=== PATIENT | female | born 1995 | race Caucasian/White ===

== ENCOUNTER 2016-06-03 16:02 | Emergency (ER) | payer OTHER ==
[2016-06-03] MEDS ORDERED: ONDANSETRON 4 MG/2 ML VIAL IVP STA (17:22)
[2016-06-03] MEDS ORDERED: SODIUM CHLORIDE 0.9% 1,000 ML IV STA (17:22)
[2016-06-03 17:53] VITALS: RESP 16
--- NOTE | 2016-06-03 17:56 | ED ---
Headache HPI - General Chief Complaint: Headache Stated Complaint: Vomiting/Nausea/headache Time Seen by Provider: 06/03/16 17:12 Source: RN notes reviewed Mode of arrival: wheelchair Limitations: no limitations - History of Present Illness Initial Comments: 21 yo female presents to the ER with cc of chronic problems. Patient states she chronically has nausea and vomiting. Patient states she chronically has headaches chronically just feels weak is on her immune system is rundown. Patient states that she just thought she should be seen today. Patient states she's never seen a doctor for this. Patient states been having for years. Patient states that today she just thought she should be seen. Patient states that there is no real pain and changes chronically is nauseous. Patient is seen that she just got the flu a lot but she threw up a few times today so she was concerned. Patient states she has no belly pain. Patient states everything she is very vague and mild. Patient denies any recent fever, chills, shortness of breath, chest pain, back pain, abdominal pain, numbness or tingling , dysuria or hematuria, constipation or diarrhea, visual changes, or any other current symptoms. - Related Data Home Medications Medication Instructions Recorded Confirmed Divalproex Sodium [Depakote] 500 mg PO DAILY 06/03/16 06/03/16 Previous Rx's Medication Instructions Recorded Ondansetron Odt [Zofran ODT] 4 mg PO Q8HR PRN #20 tab 06/03/16 Allergies Allergy/AdvReac Type Severity Reaction Status Date / Time peanut Allergy Anaphylaxis Verified 06/03/16 16:31 sertraline [From Zoloft] Allergy Unknown Verified 06/03/16 16:31 tree nut Allergy Anaphylaxis Verified 06/03/16 16:31 Review of Systems ROS Statement: Those systems with pertinent positive or pertinent negative responses have been documented in the HPI. ROS Other: All systems not noted in ROS Statement are negative. Past Medical History Past Medical History: No Reported History Additional Past Medical History / Comment(s): costocondritis, ibs History of Any Multi-Drug Resistant Organisms: None Reported Past Surgical History: No Surgical Hx Reported Past Psychological History: No Psychological Hx Reported Smoking Status: Never smoker Past Alcohol Use History: Rare Past Drug Use History: None Reported General Exam - General Exam Comments Initial Comments: General: The patient is awake and alert, in no distress, and does not appear acutely ill. Eye: Pupils are equal, round and reactive to light, extra-ocular movements are intact; there is normal conjunctiva bilaterally. No signs of icterus. Ears, nose, mouth and throat: There are moist mucous membranes and no oral lesions. Neck: The neck is supple, there is no tenderness. Cardiovascular: There is a regular rate and rhythm. No murmur, rub or gallop is appreciated. Respiratory: Lungs are clear to auscultation, respirations are non-labored, breath sounds are equal. No wheezes, stridor, rales, or rhonchi. Gastrointestinal: Soft, non-distended, non-tender abdomen without masses or organomegaly noted. There is no rebound or guarding present. No CVA tenderness. Bowel sounds are unremarkable. Back: There is no tenderness to palpation in the midline. There is no obvious deformity. No rashes noted. Musculoskeletal: Normal ROM, no tenderness, There is no pedal edema. There is no calf tenderness or swelling. Sensation intact. Pulses equal bilaterally 2+. Neurological: CN II-XII intact, There are no obvious motor or sensory deficits. Coordination appears grossly intact. Speech is normal. Skin: Skin is warm and dry and no rashes or lesions are noted. Psychiatric: Cooperative, appropriate mood & affect, normal judgment. Limitations: no limitations Course Vital Signs 06/03/16 06/03/16 16:12 17:52 Temperature 97.8 F 98.0 F Pulse Rate 85 71 Respiratory 17 16 Rate Blood Pressure 119/70 102/53 O2 Sat by Pulse 100 100 Oximetry Medical Decision Making - Medical Decision Making 21-year-old female presents for chronic nausea and vomiting. This patient's lab work and x-ray reviewed and negative. Due to the nature of this pain and discomforts been lasting for months we did discuss follow-up with her family care doctor we also gave her follow-up with GI. We will start her on Zofran to help her with the nausea. Patient states that she understood she is in agreement plan and all questions have been answered. At this time she will be discharged home. - Lab Data Result diagrams: 06/03/16 17:48 06/03/16 17:48 Lab Results 06/03/16 06/03/16 06/03/16 Range/Units 17:48 17:48 17:48 WBC 4.9 (3.8-10.6) k/uL RBC 4.29 (3.80-5.40) m/uL Hgb 12.6 (11.4-16.0) gm/dL Hct 38.9 (34.0-46.0) % MCV 90.7 (80.0-100.0) fL MCH 29.3 (25.0-35.0) pg MCHC 32.3 (31.0-37.0) g/dL RDW 12.8 (11.5-15.5) % Plt Count 186 (150-450) k/uL Neutrophils % 48 % Lymphocytes % 43 % Monocytes % 6 % Eosinophils % 1 % Basophils % 0 % Neutrophils # 2.3 (1.3-7.7) k/uL Lymphocytes # 2.1 (1.0-4.8) k/uL Monocytes # 0.3 (0-1.0) k/uL Eosinophils # 0.1 (0-0.7) k/uL Basophils # 0.0 (0-0.2) k/uL Sodium 142 (137-145) mmol/L Potassium 4.1 (3.5-5.1) mmol/L Chloride 107 (98-107) mmol/L Carbon Dioxide 23 (22-30) mmol/L Anion Gap 12 mmol/L BUN 10 (7-17) mg/dL Creatinine 0.78 (0.52-1.04) mg/dL Est GFR (MDRD) Af Amer >60 (>60 ml/min/1.73 sqM) Est GFR (MDRD) Non-Af >60 (>60 ml/min/1.73 sqM) Glucose 87 (74-99) mg/dL Calcium 9.4 (8.4-10.2) mg/dL Total Bilirubin 0.8 (0.2-1.3) mg/dL AST 14 (14-36) U/L ALT 26 (9-52) U/L Alkaline Phosphatase 54 (38-126) U/L Total Protein 7.0 (6.3-8.2) g/dL Albumin 4.1 (3.5-5.0) g/dL Urine Color Urine Appearance (Clear) Urine pH (5.0-8.0) Ur Specific [place] (1.001-1.035) Urine Protein (Negative) Urine Glucose (UA) (Negative) Urine Ketones (Negative) Urine Blood (Negative) Urine Nitrate (Negative) Urine Bilirubin (Negative) Urine Urobilinogen (<2.0) mg/dL Ur Leukocyte Esterase (Negative) Urine RBC (0-5) /hpf Urine WBC (0-5) /hpf Ur Squamous Epith Cells (0-4) /hpf Urine Mucus (None) /hpf Urine HCG, Qual Not Detected (Not Detectd) 06/03/16 Range/Units 17:48 WBC (3.8-10.6) k/uL RBC (3.80-5.40) m/uL Hgb (11.4-16.0) gm/dL Hct (34.0-46.0) % MCV (80.0-100.0) fL MCH (25.0-35.0) pg MCHC (31.0-37.0) g/dL RDW (11.5-15.5) % Plt Count (150-450) k/uL Neutrophils % % Lymphocytes % % Monocytes % % Eosinophils % % Basophils % % Neutrophils # (1.3-7.7) k/uL Lymphocytes # (1.0-4.8) k/uL Monocytes # (0-1.0) k/uL Eosinophils # (0-0.7) k/uL Basophils # (0-0.2) k/uL Sodium (137-145) mmol/L Potassium (3.5-5.1) mmol/L Chloride (98-107) mmol/L Carbon Dioxide (22-30) mmol/L Anion Gap mmol/L BUN (7-17) mg/dL Creatinine (0.52-1.04) mg/dL Est GFR (MDRD) Af Amer (>60 ml/min/1.73 sqM) Est GFR (MDRD) Non-Af (>60 ml/min/1.73 sqM) Glucose (74-99) mg/dL Calcium (8.4-10.2) mg/dL Total Bilirubin (0.2-1.3) mg/dL AST (14-36) U/L ALT (9-52) U/L Alkaline Phosphatase (38-126) U/L Total Protein (6.3-8.2) g/dL Albumin (3.5-5.0) g/dL Urine Color Yellow Urine Appearance Cloudy H (Clear) Urine pH 7.0 (5.0-8.0) Ur Specific [place] 1.019 (1.001-1.035) Urine Protein Trace H (Negative) Urine Glucose (UA) Negative (Negative) Urine Ketones 2+ H (Negative) Urine Blood Negative (Negative) Urine Nitrate Negative (Negative) Urine Bilirubin Negative (Negative) Urine Urobilinogen 3.0 (<2.0) mg/dL Ur Leukocyte Esterase Negative (Negative) Urine RBC 2 (0-5) /hpf Urine WBC 2 (0-5) /hpf Ur Squamous Epith Cells 7 H (0-4) /hpf Urine Mucus Moderate H (None) /hpf Urine HCG, Qual (Not Detectd) - Radiology Data Radiology results: report reviewed, image reviewed Disposition Clinical Impression: Nausea & vomiting Disposition: HOME SELF-CARE Condition: Stable Instructions: Acute Nausea and Vomiting (ED) Additional Instructions: Please use medication as discussed. Please follow up with family doctor if symptoms have not improved over the next two days. Please return to the emergency room if your symptoms increase or worsen or for any other concerns. Prescriptions: Ondansetron Odt [Zofran ODT] 4 mg PO Q8HR PRN #20 tab PRN Reason: Nausea Referrals: Jacky Muniz DO [Primary Care Provider] - 1-2 days Eric Prather MD [STAFF PHYSICIAN] - 1-2 days Time of Disposition: 19:22
[2016-06-03 18:01] LABS: Basophils % (A) 0 %; CH 30.1; CHCM 33.3; Eosinophils # (A) 0.1 k/uL (0-0.7); Eosinophils % (A) 1 %; HCT 38.9 % (34.0-46.0); HDW 2.47; HGB 12.6 gm/dL (11.4-16.0); Luc # (Auto) 0.06; Luc % (Auto) 1; Lymphocytes # (A) 2.1 k/uL (1.0-4.8); Lymphocytes % (A) 43 %; MCH 29.3 pg (25.0-35.0); MCHC 32.3 g/dL (31.0-37.0); MCV 90.7 fL (80.0-100.0); Mean Platelet Volume 9.5; Monocytes # (A) 0.3 k/uL (0-1.0); Monocytes % (A) 6 %; Neutrophils # (A) 2.3 k/uL (1.3-7.7); Neutrophils % (A) 48 %; RBC 4.29 m/uL (3.80-5.40); RDW 12.8 % (11.5-15.5); WBC 4.9 k/uL (3.8-10.6); WBC (Perox) 4.75
[2016-06-03 18:17] LABS: ALT 26 U/L (9-52); AST 14 U/L (14-36); Alkaline Phosphatase 54 U/L (38-126); Anion Gap 12 mmol/L; Blood Urea Nitrogen 10 mg/dL (7-17); Calcium 9.4 mg/dL (8.4-10.2); Carbon Dioxide 23 mmol/L (22-30); Chloride 107 mmol/L (98-107); Glucose 87 mg/dL (74-99); Non-African American GFR(MDRD) >60 (>60 ml/min/1.73 sqM); Potassium 4.1 mmol/L (3.5-5.1); Sodium 142 mmol/L (137-145); Total Bilirubin 0.8 mg/dL (0.2-1.3)
[2016-06-03 18:18] LABS: Appearance,Urine Cloudy (Clear); Bilirubin,Urine Negative (Negative); Glucose,Urine (UA) Negative (Negative); Ketones,Urine 2+ (Negative); Leukocyte Esterase,Urine Negative (Negative); Mucus,Urine Moderate /hpf; Nitrite,Urine Negative (Negative); Particle Count 11856; Protein,Urine Trace (Negative); RBC,Urine 2 /hpf (0-5); Specific Gravity,Urine 1.019 (1.001-1.035); Squamous Epithelial Cell,Urine 7 /hpf (0-4); UA Billing (MACRO vs. MICRO) MICRO; WBC,Urine 2 /hpf (0-5)
--- NOTE | 2016-06-03 19:13 | XR ---
EXAMINATION TYPE: XR abdomen 2V DATE OF EXAM: 06/03/2016 6:38 PM COMPARISON: NONE HISTORY: Abdominal pain TECHNIQUE: 3 views FINDINGS: There is no sign of intestinal obstruction or pneumoperitoneum. Fecal pattern is normal. Th ere is no sign of a mass. Lung bases are clear. There are no pathologic calcifications or kidneys. IMPRESSION: Nonacute abdomen.
[2016-06-03 19:27] VITALS: BP 97/50; PULSE 72; TEMP 97.4
== END 2016-06-03 19:28 | disposition home or self-care (01) ==
LOC: EC 16:02
DX: R11.2 Nausea with vomiting, unspecified (principal); R51 Headache; R53.1 Weakness; K58.9 Irritable bowel syndrome, unspecified; Z79.899 Other long term (current) drug therapy; Z91.010 Allergy to peanuts; Z91.018 Allergy to other foods; Z88.8 Allergy status to other drugs, medicaments and biological substances
CPT/HCPCS: 99284; 96374; 96361 ×2; 36415; 80053; 85025; 81001; 81025; 74020; J2405

== ENCOUNTER 2016-07-10 18:08 | Emergency (ER) | payer OTHER ==
[2016-07-10 18:23] VITALS: RESP 16
[2016-07-10] MEDS ORDERED: SODIUM CHLORIDE 0.9% 1,000 ML IV ONE (18:38)
[2016-07-10] MEDS ORDERED: FAMOTIDINE 20 MG/2 ML VIAL IV STA (18:38)
[2016-07-10] MEDS ORDERED: ONDANSETRON 4 MG/2 ML VIAL IVP STA (18:38)
--- NOTE | 2016-07-10 18:49 | ED ---
General Adult HPI - General Chief complaint: Abdominal Pain Stated complaint: vomiting Time Seen by Provider: 07/10/16 18:13 Source: patient, family, RN notes reviewed, old records reviewed Mode of arrival: ambulatory Limitations: no limitations - History of Present Illness Initial comments: 21-year-old female presenting for nausea and vomiting. States his been a recurrent issue since March 2016. States that she is taking medication for her stomach. She denies any nausea medications. She states that today she began feeling nauseous again and has been throwing up throughout the day today. She denies any fevers or chills associated. She denies any significant abdominal pain associated. She is currently in the process of following up with GI for an EGD but has not had this done at this point. - Related Data Home Medications Medication Instructions Recorded Confirmed Divalproex Sodium [Depakote] 1,000 mg PO DAILY 06/03/16 07/10/16 Omeprazole 20 mg PO DAILY 07/10/16 07/10/16 Previous Rx's Medication Instructions Recorded Metoclopramide [Reglan] 10 mg PO Q8HR PRN #15 tab 07/10/16 Allergies Allergy/AdvReac Type Severity Reaction Status Date / Time peanut Allergy Anaphylaxis Verified 07/10/16 18:37 sertraline [From Zoloft] Allergy Unknown Verified 07/10/16 18:37 tree nut Allergy Anaphylaxis Verified 07/10/16 18:37 Review of Systems ROS Statement: Those systems with pertinent positive or pertinent negative responses have been documented in the HPI. ROS Other: All systems not noted in ROS Statement are negative. Past Medical History Past Medical History: No Reported History Additional Past Medical History / Comment(s): costocondritis, ibs History of Any Multi-Drug Resistant Organisms: None Reported Past Surgical History: No Surgical Hx Reported Past Psychological History: No Psychological Hx Reported Smoking Status: Never smoker Past Alcohol Use History: Rare Past Drug Use History: None Reported General Exam - General Exam Comments Initial Comments: General: Awake and Alert. No acute distress. Does not appear acutely ill. Obese. Eyes: KRISTY, EOM intact. No nystagmus. No scleral icterus. HENT: Atraumatic, normocephalic. Mucous membranes moist. Trachea midline. Neck: The neck is supple, there is no tenderness or JVD. Cardiovascular: Regular rate and rhythm. No murmur, rub, or gallop is appreciated. Distal pulses intact. Respiratory: Lungs are clear to auscultation bilaterally. No wheezes, rales, rhonchi. No respiratory distress. Gastrointestinal: Soft, Nontender. No rebound or guarding. Non-distended. No masses or organomegaly noted. No CVA tenderness. Musculoskeletal: No tenderness. Normal ROM. No gross deformity. No strength deficits. Neurological: A&Ox3. CN II-XII grossly intact, There are no obvious motor or sensory deficits. Coordination appears grossly intact. Speech is normal. Skin: Skin is warm and dry and no rashes or lesions are noted. Psychiatric: Cooperative, appropriate mood & affect, normal judgment. Limitations: no limitations Course Vital Signs 07/10/16 07/10/16 07/10/16 18:19 19:40 20:49 Temperature 98.2 F 97.4 F L 97.1 F L Pulse Rate 91 89 80 Respiratory 16 16 16 Rate Blood Pressure 119/65 110/55 110/57 O2 Sat by Pulse 100 100 97 Oximetry Medical Decision Making - Medical Decision Making 21-year-old female presented for nausea and vomiting. This has been a recurrent issue for her since March 2016. She denies any significant abdominal pain at this time. Abdominal exam with no significant tenderness or evidence of peritonitis. Patient given symptomatic treatment with IV fluids and Zofran. Reevaluated and still having nausea. IV Reglan was given. Patient states this significantly improved her symptoms. Basic lab work was performed grossly unremarkable. Discussed possible underlying gastritis as cause of these recurrent symptoms. Discussed close follow-up with GI. Rx provided for Reglan. Discussed possible side effects of Reglan and use Benadryl if needed. Patient appears stable for discharge at this time. Discussed concerning signs symptoms for immediate return to the ED. Patient and mother agreeable with plan and discharge home. - Lab Data Result diagrams: 07/10/16 18:50 07/10/16 18:50 Lab Results 07/10/16 07/10/16 07/10/16 Range/Units 18:50 18:50 18:50 WBC 6.6 (3.8-10.6) k/uL RBC 4.14 (3.80-5.40) m/uL Hgb 12.6 (11.4-16.0) gm/dL Hct 37.7 (34.0-46.0) % MCV 91.2 (80.0-100.0) fL MCH 30.5 (25.0-35.0) pg MCHC 33.4 (31.0-37.0) g/dL RDW 12.9 (11.5-15.5) % Plt Count 198 (150-450) k/uL Neutrophils % 51 % Lymphocytes % 40 % Monocytes % 6 % Eosinophils % 1 % Basophils % 1 % Neutrophils # 3.4 (1.3-7.7) k/uL Lymphocytes # 2.7 (1.0-4.8) k/uL Monocytes # 0.4 (0-1.0) k/uL Eosinophils # 0.1 (0-0.7) k/uL Basophils # 0.0 (0-0.2) k/uL Sodium 142 (137-145) mmol/L Potassium 4.2 (3.5-5.1) mmol/L Chloride 108 H (98-107) mmol/L Carbon Dioxide 24 (22-30) mmol/L Anion Gap 10 mmol/L BUN 7 (7-17) mg/dL Creatinine 0.83 (0.52-1.04) mg/dL Est GFR (MDRD) Af Amer >60 (>60 ml/min/1.73 sqM) Est GFR (MDRD) Non-Af >60 (>60 ml/min/1.73 sqM) Glucose 88 (74-99) mg/dL Calcium 9.4 (8.4-10.2) mg/dL Lipase 67 (23-300) U/L Urine Color Urine Appearance (Clear) Urine pH (5.0-8.0) Ur Specific [place] (1.001-1.035) Urine Protein (Negative) Urine Glucose (UA) (Negative) Urine Ketones (Negative) Urine Blood (Negative) Urine Nitrite (Negative) Urine Bilirubin (Negative) Urine Urobilinogen (<2.0) mg/dL Ur Leukocyte Esterase (Negative) Urine RBC (0-5) /hpf Urine WBC (0-5) /hpf Ur Squamous Epith Cells (0-4) /hpf Urine Bacteria (None) /hpf Urine Mucus (None) /hpf Urine HCG, Qual Not Detected (Not Detectd) 07/10/16 Range/Units 18:50 WBC (3.8-10.6) k/uL RBC (3.80-5.40) m/uL Hgb (11.4-16.0) gm/dL Hct (34.0-46.0) % MCV (80.0-100.0) fL MCH (25.0-35.0) pg MCHC (31.0-37.0) g/dL RDW (11.5-15.5) % Plt Count (150-450) k/uL Neutrophils % % Lymphocytes % % Monocytes % % Eosinophils % % Basophils % % Neutrophils # (1.3-7.7) k/uL Lymphocytes # (1.0-4.8) k/uL Monocytes # (0-1.0) k/uL Eosinophils # (0-0.7) k/uL Basophils # (0-0.2) k/uL Sodium (137-145) mmol/L Potassium (3.5-5.1) mmol/L Chloride (98-107) mmol/L Carbon Dioxide (22-30) mmol/L Anion Gap mmol/L BUN (7-17) mg/dL Creatinine (0.52-1.04) mg/dL Est GFR (MDRD) Af Amer (>60 ml/min/1.73 sqM) Est GFR (MDRD) Non-Af (>60 ml/min/1.73 sqM) Glucose (74-99) mg/dL Calcium (8.4-10.2) mg/dL Lipase (23-300) U/L Urine Color Yellow Urine Appearance Cloudy H (Clear) Urine pH 8.0 (5.0-8.0) Ur Specific [place] 1.010 (1.001-1.035) Urine Protein Negative (Negative) Urine Glucose (UA) Negative (Negative) Urine Ketones 1+ H (Negative) Urine Blood Negative (Negative) Urine Nitrite Negative (Negative) Urine Bilirubin Negative (Negative) Urine Urobilinogen <2.0 (<2.0) mg/dL Ur Leukocyte Esterase Negative (Negative) Urine RBC <1 (0-5) /hpf Urine WBC 1 (0-5) /hpf Ur Squamous Epith Cells 7 H (0-4) /hpf Urine Bacteria Few H (None) /hpf Urine Mucus Rare H (None) /hpf Urine HCG, Qual (Not Detectd) Disposition Clinical Impression: Nausea & vomiting, Nonspecific abdominal pain Disposition: HOME SELF-CARE Condition: Stable Instructions: Abdominal Pain (ED), Gastritis (ED), Acute Nausea and Vomiting ( ED) Additional Instructions: Please continue to take your omeprazole. You may take the Reglan as needed for nausea. If you noticed any jittery feeling or muscle spasms please take Benadryl as this is a potential side effect of Reglan. Prescriptions: Metoclopramide [Reglan] 10 mg PO Q8HR PRN #15 tab PRN Reason: Nausea Referrals: Jacky Muniz DO [Primary Care Provider] - 1-2 days Time of Disposition: 20:43
[2016-07-10 19:08] LABS: Basophils % (A) 1 %; CH 30.6; CHCM 33.7; Eosinophils # (A) 0.1 k/uL (0-0.7); Eosinophils % (A) 1 %; HCT 37.7 % (34.0-46.0); HDW 2.56; HGB 12.6 gm/dL (11.4-16.0); Luc # (Auto) 0.15; Luc % (Auto) 2; Lymphocytes # (A) 2.7 k/uL (1.0-4.8); Lymphocytes % (A) 40 %; MCH 30.5 pg (25.0-35.0); MCHC 33.4 g/dL (31.0-37.0); MCV 91.2 fL (80.0-100.0); Mean Platelet Volume 9.2; Monocytes # (A) 0.4 k/uL (0-1.0); Monocytes % (A) 6 %; Neutrophils # (A) 3.4 k/uL (1.3-7.7); Neutrophils % (A) 51 %; RBC 4.14 m/uL (3.80-5.40); RDW 12.9 % (11.5-15.5); WBC 6.6 k/uL (3.8-10.6); WBC (Perox) 6.81
[2016-07-10 19:13] LABS: Appearance,Urine Cloudy (Clear); Bacteria,Urine Few /hpf; Bilirubin,Urine Negative (Negative); Glucose,Urine (UA) Negative (Negative); Ketones,Urine 1+ (Negative); Leukocyte Esterase,Urine Negative (Negative); Mucus,Urine Rare /hpf; Nitrite,Urine Negative (Negative); Particle Count 4592; Protein,Urine Negative (Negative); RBC,Urine <1 /hpf (0-5); Squamous Epithelial Cell,Urine 7 /hpf (0-4); UA Billing (MACRO vs. MICRO) MICRO; Urobilinogen,Urine <2.0 mg/dL (<2.0); WBC,Urine 1 /hpf (0-5)
[2016-07-10 19:15] LABS: Anion Gap 10 mmol/L; Blood Urea Nitrogen 7 mg/dL (7-17); Calcium 9.4 mg/dL (8.4-10.2); Carbon Dioxide 24 mmol/L (22-30); Chloride 108 mmol/L (98-107); Glucose 88 mg/dL (74-99); Non-African American GFR(MDRD) >60 (>60 ml/min/1.73 sqM); Potassium 4.2 mmol/L (3.5-5.1); Sodium 142 mmol/L (137-145)
[2016-07-10] MEDS ORDERED: METOCLOPRAMIDE 5 MG/ML 2 ML VIAL IVP STA (19:41)
[2016-07-10 20:50] VITALS: BP 110/57; PULSE 80; TEMP 97.1
== END 2016-07-10 20:49 | disposition home or self-care (01) ==
LOC: EC 18:08
DX: K29.70 Gastritis, unspecified, without bleeding (principal); Z79.899 Other long term (current) drug therapy; Z91.010 Allergy to peanuts; Z91.018 Allergy to other foods; Z88.8 Allergy status to other drugs, medicaments and biological substances
CPT/HCPCS: 36415; 80048; 83690; 85025; 81001; 81025; 99284; 96374; 96375 ×2; 96361; J2765; J2405

== ENCOUNTER → 2016-07-15 | Outpatient (CLI) | payer OTHER ==
--- NOTE | 2016-07-15 11:20 | US ---
EXAMINATION TYPE: US gallbladder DATE OF EXAM: 07/15/2016 10:04 AM COMPARISON: NONE CLINICAL HISTORY: 21-year-old female R11.2 Nausea with Vomiting. Technique: Multiple sonographic images of the right upper quadrant are obtained. FINDINGS: Liver Length: 10.8 cm Gallbladder Wall: 0.2 cm CBD: 0.4 cm Right Kidney: 9.7 x 3.8 x 4.6 cm Pancreas: Only a small portion of the pancreatic body is seen. Remainder suboptimally visualized seco ndary to shadowing from bowel gas. Liver: Normal size with homogeneous echotexture. No focal lesion. Gallbladder: No abnormal gallbladder distention, wall thickening, pericholecystic fluid, or shadowin g calculi. Evidence for sonographic Turpin's sign: No CBD: wnl Right Kidney: No hydronephrosis. There is a small 1 cm mid pole cyst. Some internal low level echoes are present but felt to be artifactual. IMPRESSION: Suboptimal visualization of the pancreas. In addition, incidental 1 cm right renal midpole cyst. Othe rwise, unremarkable sonographic examination of the right upper quadrant.
== END | disposition home or self-care (01) ==
LOC: RADUSWWP 09:32
PROVIDERS: ATTEND Internal Medicine Gastroenterology
DX: R11.2 Nausea with vomiting, unspecified (principal)
CPT/HCPCS: 76705

== ENCOUNTER 2016-07-24 10:43 | Day surgery (SDC) | payer OTHER ==
[2016-07-23 10:08] VITALS: BMI 33.9
[~2016-07-24 10:43] MED LIST: LACTATED RINGERS 1,000 ML IV SCH
[2016-07-24 12:28] VITALS: TEMP 99.2
[2016-07-24] MEDS ORDERED: LIDOCAINE 1% 20 ML VIAL (10MG/ML) FOR IV START INTRADERMA ONE (12:38)
[2016-07-24] MEDS ORDERED: LIDOCAINE 1% INJ 10MG/ML (20 ML MDV) ONE (13:04)
[2016-07-24] MEDS ORDERED: PROPOFOL 10 MG/ML 20 ML VIAL IV ONE (13:04)
--- NOTE | 2016-07-24 13:12 | P.PCN ---
Date of Procedure: 07/24/16 Procedure(s) Performed: BRIEF HISTORY: Patient is a 19 to-year-old, pleasant, white female, scheduled for an upper endoscopy as a part of evaluation of chronic nausea vomiting for the last 3 months duration. She is been on Prilosec 20 mg daily with no significant change in her symptoms. She has these episodes 2-3 times each month and during these episodes she has a midsternal chest pain. She lost about 20 pounds since onset of the symptoms. She is hence scheduled for an upper endoscopy to evaluate further. PROCEDURE PERFORMED: Esophagogastroduodenoscopy with biopsy. PREOPERATIVE DIAGNOSIS: Chronic nausea, vomiting of 3 months duration. IV sedation per anesthesia. PROCEDURE: After informed consent was obtained, the patient was brought into the endoscopy unit. IV conscious sedation was administered by Anesthesia under continuous monitoring. Initially the Olympus GIF-140 video endoscope was inserted into the mouth. Esophagus intubated without any difficulty. It was gradually advanced into the stomach and duodenum and carefully examined. The bulb and the second part of the duodenum appeared normal. Biopsies were done from this area to rule out celiac disease. The scope at this time was withdrawn to the stomach, adequately insufflated with air, and upon careful examination, mucosa of the antrum, had mild gastritis and biopsies were done from this area. The body, cardia and the fundus appeared normal. The scope was then withdrawn into the esophagus. The GE junction was located at 39 cm from the incisors. The esophagus appeared normal. There were no erosions or ulcerations seen and the patient tolerated the procedure well. IMPRESSION: 1. Mild antral Gastritis. 2. No evidence of esophagitis, peptic ulcer disease or gastric outlet obstruction. RECOMMENDATIONS: The findings of this examination were discussed with the patient as well as a family. She was advised to continue with Prilosec 20 mg daily and follow with the biopsy results. She'll be seen in the office in 4-6 weeks.
[2016-07-24 13:54] VITALS: BP 105/73; PULSE 80; RESP 16
== END 2016-07-24 14:14 | disposition home or self-care (01) ==
LOC: ORWHC2ENDO 10:43
PROVIDERS: ATTEND Internal Medicine Gastroenterology
DX: R11.2 Nausea with vomiting, unspecified (principal); R07.9 Chest pain, unspecified; K29.80 Duodenitis without bleeding; K29.50 Unspecified chronic gastritis without bleeding; F31.9 Bipolar disorder, unspecified; K20.9 Esophagitis, unspecified; Z79.899 Other long term (current) drug therapy; Z88.8 Allergy status to other drugs, medicaments and biological substances
CPT/HCPCS: 81025; 88305; 88342; 43239; J2001; J2704

== ENCOUNTER → 2018-04-14 | Outpatient (CLI) | payer OTHER ==
--- NOTE | 2018-04-15 07:52 | CT ---
EXAMINATION TYPE: CT chest w con DATE OF EXAM: 04/14/2018 COMPARISON: Chest x-ray August 03, 2015 HISTORY: SOB, cough X [address] DLP: 446.3 mGycm. Automated Exposure Control for Dose Reduction was Utilized. TECHNIQUE: CT scan of the thorax is performed following with IV Contrast, patient injected with 100 mL of Isovue 300. FINDINGS: LUNGS: Mild Dependent atelectasis bilateral lower lobes is present. No suspicious consolidation or fo jannette groundglass opacity is seen. There is no pleural effusion or pneumothorax seen bilaterally. Th e tracheobronchial tree is patent. MEDIASTINUM: There are no greater than 1 cm hilar or mediastinal lymph nodes. No cardiomegaly or pe ricardial effusion is seen. There is 4 vessel origin from aortic arch which is normal variant. OTHER: No additional significant abnormality is seen. IMPRESSION: No suspicious acute pulmonary process.
== END | disposition home or self-care (01) ==
LOC: RADCTMAIN 16:59
PROVIDERS: ATTEND Family Medicine
DX: R06.02 Shortness of breath (principal); R05 Cough; Z91.010 Allergy to peanuts
CPT/HCPCS: 71260; Q9967

== ENCOUNTER → 2018-07-26 | Outpatient (CLI) | payer OTHER ==
--- NOTE | 2018-07-26 13:55 | XR ---
EXAMINATION TYPE: XR ribs bilat w pa chest xray DATE OF EXAM: 07/26/2018 CLINICAL HISTORY: Chest and left greater than right bilateral rib pain. Dry cough. TECHNIQUE: Single frontal view of the chest is obtained. A frontal and oblique images of the bilatera l ribs are acquired. COMPARISON: None FINDINGS: There is no focal air space opacity, pleural effusion, or pneumothorax seen. The cardiac silhouette size is within normal limits. The osseous structures are intact. Dedicated images of bilateral ribs show no acute displaced fracture bilaterally. Overlying soft tissu e is unremarkable. IMPRESSION: 1. No acute cardiopulmonary process. 2. No acute displaced rib fractures are seen bilaterally
== END | disposition home or self-care (01) ==
LOC: RADXRMAIN 13:26
PROVIDERS: ATTEND Internal Medicine
DX: R05 Cough (principal); R07.81 Pleurodynia; R07.9 Chest pain, unspecified
CPT/HCPCS: 71111

== ENCOUNTER 2018-10-27 21:00 | Emergency (ER) | payer OTHER ==
[2018-10-27] MEDS ORDERED: LIDOCAINE 1% INJ 10MG/ML (20 ML MDV) SQ ONE (21:34)
--- NOTE | 2018-10-27 21:53 | XR ---
EXAMINATION TYPE: XR foot limited LT DATE OF EXAM: 10/27/2018 COMPARISON: NONE HISTORY: Possible foreign body TECHNIQUE: 2 views. FINDINGS: There is 4 mm linear opacity projected over the mid shaft of the proximal phalanx of the little toe left foot consistent with glass foreign body. Joint spaces are normal. Metatarsals are intact. There is small plantar calcaneal spur. : IMPRESSION: Small foreign body over the little toe. This is probably on the plantar aspect.
[2018-10-27] MEDS ORDERED: DIPH,PERTUS(ACELL)TETVAC-LF 0.5 ML VIAL IM ONE (22:02)
--- NOTE | 2018-10-27 22:40 | ED ---
Lower Extremity Injury HPI - General Chief Complaint: Extremity Injury, Lower Stated Complaint: Glass in foot Time Seen by Provider: 10/27/18 21:22 Source: patient Mode of arrival: ambulatory Limitations: no limitations - History of Present Illness Initial Comments: S23 female with no PMH presenting for left foot foreign body. Patient states she was barefoot in her basement 3 days prior when she stepped in a piece of glass with left foot. Patient states she is unable to get it out. Patient denies any erythema fever or chills. She states it has not been able to be removed states is painful walking. Patient presented for removal. Patient denies fall or other traumas. Patient denies any other areas of glass. Remaining review of systems negative - Related Data Home Medications Medication Instructions Recorded Confirmed Albuterol Inhaler [Ventolin Hfa 1 - 2 puff INHALATION RT-Q6H PRN 10/27/18 10/27/18 Inhaler] Previous Rx's Medication Instructions Recorded Cephalexin [Keflex] 500 mg PO Q8HR 5 Days #15 cap 10/27/18 Allergies Allergy/AdvReac Type Severity Reaction Status Date / Time peanut Allergy Anaphylaxis Verified 10/27/18 21:30 sertraline [From Zoloft] Allergy HEARTBURN Verified 10/27/18 21:30 tree nut Allergy Anaphylaxis Verified 10/27/18 21:30 Review of Systems ROS Statement: Those systems with pertinent positive or pertinent negative responses have been documented in the HPI. ROS Other: All systems not noted in ROS Statement are negative. Past Medical History Past Medical History: No Reported History Additional Past Medical History / Comment(s): NAUSEA/VOMITING, costocondritis, ibs History of Any Multi-Drug Resistant Organisms: None Reported Past Surgical History: No Surgical Hx Reported Past Anesthesia/Blood Transfusion Reactions: No Reported Reaction Past Psychological History: Bipolar Smoking Status: Never smoker Past Alcohol Use History: None Reported Past Drug Use History: None Reported - Past Family History Mother Family Medical History: No Reported History General Exam - General Exam Comments Initial Comments: General: The patient is awake and alert, in no distress, and does not appear acutely ill. Eye: +3 mm pupils are equal, round and reactive to light, extra-ocular movements are intact. No nystagmus. There is normal conjunctiva bilaterally. No signs of icterus. Ears, nose, mouth and throat: There are moist mucous membranes and no oral lesions. Neck: The neck is supple, there is no tenderness or JVD. Cardiovascular: There is a regular rate and rhythm. No murmur, rub or gallop is appreciated. Respiratory: Lungs are clear to auscultation, respirations are non-labored, breath sounds are equal. No wheezes, stridor, rales, or rhonchi. Musculoskeletal: Normal ROM, no tenderness. Strength 5/5. Sensation intact. Radial pulses equal bilaterally 2+. Neurological: A&O x 3. CN II-XII intact, There are no obvious motor or sensory deficits. Coordination appears grossly intact. Speech is normal. Skin: Skin is warm and dry and no rashe. 1/4 cm puncture with glass in middle near base of 5th digit of left foot plantar surface. painful to palpation. no drainage. Psychiatric: Cooperative, appropriate mood & affect, normal judgment. Limitations: no limitations Course Vital Signs 10/27/18 10/27/18 21:11 22:48 Temperature 98.5 F 97.9 F Pulse Rate 86 76 Respiratory 16 18 Rate Blood Pressure 142/88 127/89 O2 Sat by Pulse 99 99 Oximetry Medical Decision Making - Medical Decision Making 23-year-old female presented for chief complaint of glass in foot. glass on xr and on exam. removed, cleansed extensively. bandage applied. tetanus updated. no surrounding signs of infection. Patient states it did not go through sole of shoe. Patient started on short course of abx given length of time FB in foot. Patient discharged appearing well. Return parameters discussed as well as importance of pcp f/u. Disposition Clinical Impression: Foreign body in foot, left Disposition: HOME SELF-CARE Condition: Good Instructions (If sedation given, give patient instructions): Soft Tissue Foreign Body (ED) Additional Instructions: Please use medication as discussed. Please follow-up with family doctor in the next 2 days. Please return to emergency room if the symptoms increase or worsen or for any other concerns. Prescriptions: Cephalexin [Keflex] 500 mg PO Q8HR 5 Days #15 cap Is patient prescribed a controlled substance at d/c from ED?: No Referrals: Jacky Muniz DO [Primary Care Provider] - 1-2 days Time of Disposition: 22:40
[2018-10-27 22:49] VITALS: BP 127/89; PULSE 76; RESP 18; TEMP 97.9
--- NOTE | 2018-10-28 05:38 | CDI ---
Documentation Clarification OP Dear Elsa CORADO, PAC Please do the addendum for foreign body removal procedure. Thank you, Nelly Pierson Autotransfusionist If you have any question, Please contact learning manager at [phone] [facility]
== END 2018-10-27 22:50 | disposition home or self-care (01) ==
LOC: EC 21:00
DX: S91.342A Puncture wound with foreign body, left foot, initial encounter (principal); Z23 Encounter for immunization; Z88.8 Allergy status to other drugs, medicaments and biological substances; Z91.010 Allergy to peanuts; Z91.018 Allergy to other foods; W45.8XXA Other foreign body or object entering through skin, initial encounter
CPT/HCPCS: 99283; 90471; 28190; 73620; 90715; J2001

== ENCOUNTER 2019-08-01 16:47 | Emergency (ER) | payer OTHER ==
[2019-08-01] MEDS ORDERED: ONDANSETRON 4 MG/2 ML VIAL IVP STA (17:20)
[2019-08-01] MEDS ORDERED: ACETAMINOPHEN TAB 500 MG TAB PO STA (17:20)
[2019-08-01] MEDS ORDERED: SODIUM CHLORIDE 0.9% 2,000 ML IV STA (17:20)
--- NOTE | 2019-08-01 17:24 | ED ---
General Adult HPI - General Chief complaint: Nausea/Vomiting/Diarrhea Stated complaint: nausea, vomiting Time Seen by Provider: 08/01/19 17:02 Source: patient, RN notes reviewed Mode of arrival: wheelchair Limitations: no limitations - History of Present Illness Initial comments: 24-year-old female with a past medical history of nausea vomiting, IBS presents to the emergency department for a chief complaint of nausea vomiting. Patient states she has been nauseous and vomiting for about a week. States she does not feel she is able to keep much fluids down. She has not had a fever for 4 days. She denies any abdominal pain whatsoever. Denies any back pain. Denies any dysuria. Patient denies any cough congestion sore throat. Denies any anthony virus exposures.Patient has no other complaints at this time including shortness of breath, chest pain, abdominal pain, headache, or visual changes. - Related Data Home Medications Medication Instructions Recorded Confirmed Albuterol Inhaler [Ventolin Hfa 1 puff INHALATION RT-Q4H PRN 08/01/19 08/01/19 Inhaler] Previous Rx's Medication Instructions Recorded Cephalexin [Keflex] 500 mg PO Q6HR 14 Days #56 cap 08/01/19 Ondansetron [Zofran ODT] 4 mg PO Q8HR PRN #15 tab 08/01/19 Allergies Allergy/AdvReac Type Severity Reaction Status Date / Time peanut Allergy Anaphylaxis Verified 08/01/19 17:35 sertraline [From Zoloft] Allergy HEARTBURN Verified 08/01/19 17:35 tree nut Allergy Anaphylaxis Verified 08/01/19 17:35 Review of Systems ROS Statement: Those systems with pertinent positive or pertinent negative responses have been documented in the HPI. ROS Other: All systems not noted in ROS Statement are negative. Past Medical History Past Medical History: No Reported History Additional Past Medical History / Comment(s): NAUSEA/VOMITING, costocondritis, ibs History of Any Multi-Drug Resistant Organisms: None Reported Past Surgical History: No Surgical Hx Reported Past Anesthesia/Blood Transfusion Reactions: No Reported Reaction Past Psychological History: Bipolar Smoking Status: Never smoker Past Alcohol Use History: None Reported Past Drug Use History: None Reported - Past Family History Mother Family Medical History: No Reported History General Exam Limitations: no limitations General appearance: alert, in no apparent distress Head exam: Present: atraumatic, normocephalic, normal inspection Eye exam: Present: normal appearance, PERRL, EOMI. Absent: scleral icterus, conjunctival injection, periorbital swelling ENT exam: Present: normal exam, mucous membranes moist Neck exam: Present: normal inspection, full ROM. Absent: tenderness, meningismus, lymphadenopathy Respiratory exam: Present: normal lung sounds bilaterally. Absent: respiratory distress, wheezes, rales, rhonchi, stridor Cardiovascular Exam: Present: regular rate, normal rhythm, normal heart sounds. Absent: systolic murmur, diastolic murmur, rubs, gallop, clicks GI/Abdominal exam: Present: soft, normal bowel sounds. Absent: distended, tenderness (No abdominal tenderness whatsoever), guarding, rebound, rigid Back exam: Absent: CVA tenderness (R), CVA tenderness (L) Neurological exam: Present: alert Course Vital Signs 08/01/19 08/01/19 08/01/19 16:52 18:34 19:06 Temperature 100.3 F H 98.4 F Pulse Rate 115 H 94 Respiratory 20 18 Rate Blood Pressure 110/70 117/66 O2 Sat by Pulse 96 97 Oximetry Medical Decision Making - Medical Decision Making Patient initially febrile with mild reflexive tachycardia. Otherwise normal vitals. CBC has minimal leukopenia. CMP unremarkable. Urinalysis does show evidence of urinary tract infection. She does not have any abdominal tenderness or CVA tenderness. Patient is also on her period which is likely contributing to red blood cells. HCG is negative. Patient was given 2 L of fluids and 2 g or Rocephin. Patient will be treated with Keflex outpatient. She is tolerating oral intake. However we did recommend she return if she has any worsening symp toms which she is agreeable to. - Lab Data Result diagrams: 08/01/19 17:43 08/01/19 17:43 Lab Results 08/01/19 08/01/19 08/01/19 Range/Units 17:43 17:43 17:43 WBC 3.3 L (3.8-10.6) k/uL RBC 4.72 (3.80-5.40) m/uL Hgb 13.6 (11.4-16.0) gm/dL Hct 40.5 (34.0-46.0) % MCV 85.8 (80.0-100.0) fL MCH 28.8 (25.0-35.0) pg MCHC 33.5 (31.0-37.0) g/dL RDW 13.0 (11.5-15.5) % Plt Count 136 L (150-450) k/uL Neutrophils % 60 % Lymphocytes % 33 % Monocytes % 3 % Eosinophils % 1 % Basophils % 1 % Neutrophils # 2.0 (1.3-7.7) k/uL Lymphocytes # 1.1 (1.0-4.8) k/uL Monocytes # 0.1 (0-1.0) k/uL Eosinophils # 0.0 (0-0.7) k/uL Basophils # 0.0 (0-0.2) k/uL Sodium (137-145) mmol/L Potassium (3.5-5.1) mmol/L Chloride (98-107) mmol/L Carbon Dioxide (22-30) mmol/L Anion Gap mmol/L BUN (7-17) mg/dL Creatinine (0.52-1.04) mg/dL Est GFR (CKD-EPI)AfAm (>60 ml/min/1.73 sqM) Est GFR (CKD-EPI)NonAf (>60 ml/min/1.73 sqM) Glucose (74-99) mg/dL Calcium (8.4-10.2) mg/dL Total Bilirubin (0.2-1.3) mg/dL AST (14-36) U/L ALT (4-34) U/L Alkaline Phosphatase (38-126) U/L Total Protein (6.3-8.2) g/dL Albumin (3.5-5.0) g/dL Urine Color Red Urine Appearance Cloudy H (Clear) Urine pH 6.0 (5.0-8.0) Ur Specific [place] 1.025 (1.001-1.035) Urine Protein 2+ H (Negative) Urine Glucose (UA) Negative (Negative) Urine Ketones 1+ H (Negative) Urine Blood Large H (Negative) Urine Nitrite Negative (Negative) Urine Bilirubin Negative (Negative) Urine Urobilinogen 2.0 (<2.0) mg/dL Ur Leukocyte Esterase Moderate H (Negative) Urine RBC >182 H (0-5) /hpf Urine WBC >182 H (0-5) /hpf Ur Squamous Epith Cells 9 H (0-4) /hpf Urine Mucus Many H (None) /hpf Urine HCG, Qual Not Detected (Not Detectd) 08/01/19 Range/Units 17:43 WBC (3.8-10.6) k/uL RBC (3.80-5.40) m/uL Hgb (11.4-16.0) gm/dL Hct (34.0-46.0) % MCV (80.0-100.0) fL MCH (25.0-35.0) pg MCHC (31.0-37.0) g/dL RDW (11.5-15.5) % Plt Count (150-450) k/uL Neutrophils % % Lymphocytes % % Monocytes % % Eosinophils % % Basophils % % Neutrophils # (1.3-7.7) k/uL Lymphocytes # (1.0-4.8) k/uL Monocytes # (0-1.0) k/uL Eosinophils # (0-0.7) k/uL Basophils # (0-0.2) k/uL Sodium 137 (137-145) mmol/L Potassium 3.9 (3.5-5.1) mmol/L Chloride 103 (98-107) mmol/L Carbon Dioxide 24 (22-30) mmol/L Anion Gap 10 mmol/L BUN 15 (7-17) mg/dL Creatinine 1.01 (0.52-1.04) mg/dL Est GFR (CKD-EPI)AfAm 90 (>60 ml/min/1.73 sqM) Est GFR (CKD-EPI)NonAf 78 (>60 ml/min/1.73 sqM) Glucose 102 H (74-99) mg/dL Calcium 8.8 (8.4-10.2) mg/dL Total Bilirubin 0.4 (0.2-1.3) mg/dL AST 25 (14-36) U/L ALT 11 (4-34) U/L Alkaline Phosphatase 45 (38-126) U/L Total Protein 7.5 (6.3-8.2) g/dL Albumin 4.4 (3.5-5.0) g/dL Urine Color Urine Appearance (Clear) Urine pH (5.0-8.0) Ur Specific [place] (1.001-1.035) Urine Protein (Negative) Urine Glucose (UA) (Negative) Urine Ketones (Negative) Urine Blood (Negative) Urine Nitrite (Negative) Urine Bilirubin (Negative) Urine Urobilinogen (<2.0) mg/dL Ur Leukocyte Esterase (Negative) Urine RBC (0-5) /hpf Urine WBC (0-5) /hpf Ur Squamous Epith Cells (0-4) /hpf Urine Mucus (None) /hpf Urine HCG, Qual (Not Detectd) Disposition Clinical Impression: Urinary tract infection Disposition: HOME SELF-CARE Condition: Good Instructions (If sedation given, give patient instructions): Urinary Tract Infection in Women (ED), Acute Nausea and Vomiting (ED) Additional Instructions: Please drink plenty of fluids. Take Zofran as needed for nausea. Take Keflex for antibiotic coverage. Return to the emergency department if you have any worsening symptoms or symptoms are not improving in the next 24-48 hours. Prescriptions: Cephalexin [Keflex] 500 mg PO Q6HR 14 Days #56 cap Ondansetron [Zofran ODT] 4 mg PO Q8HR PRN #15 tab PRN Reason: Nausea Is patient prescribed a controlled substance at d/c from ED?: No Referrals: Jacky Muniz DO [Primary Care Provider] - 1-2 days Time of Disposition: 19:30
[2019-08-01 17:55] LABS: Basophils % (A) 1 %; Eosinophils % (A) 1 %; HCT 40.5 % (34.0-46.0); HGB 13.6 gm/dL (11.4-16.0); Lymphocytes # (A) 1.1 k/uL (1.0-4.8); Lymphocytes % (A) 33 %; MCH 28.8 pg (25.0-35.0); MCHC 33.5 g/dL (31.0-37.0); MCV 85.8 fL (80.0-100.0); Mean Platelet Volume 10.1; Monocytes # (A) 0.1 k/uL (0-1.0); Monocytes % (A) 3 %; Neutrophils % (A) 60 %; Platelet Count 136 k/uL (150-450); RBC 4.72 m/uL (3.80-5.40); WBC 3.3 k/uL (3.8-10.6)
[2019-08-01 17:58] LABS: Appearance,Urine Cloudy (Clear); Bilirubin,Urine Negative (Negative); Blood,Urine Large (Negative); Color,Urine Red; Glucose,Urine (UA) Negative (Negative); Ketones,Urine 1+ (Negative); Leukocyte Esterase,Urine Moderate (Negative); Mucus,Urine Many /hpf; Nitrite,Urine Negative (Negative); Protein,Urine 2+ (Negative); RBC,Urine >182 /hpf (0-5); Specific Gravity,Urine 1.025 (1.001-1.035); Squamous Epithelial Cell,Urine 9 /hpf (0-4); WBC,Urine >182 /hpf (0-5)
[2019-08-01 18:04] LABS: Albumin 4.4 g/dL (3.5-5.0); Calcium 8.8 mg/dL (8.4-10.2); Potassium 3.9 mmol/L (3.5-5.1); Total Bilirubin 0.4 mg/dL (0.2-1.3); Total Protein 7.5 g/dL (6.3-8.2)
[2019-08-01] MEDS ORDERED: cefTRIAXone IN SWFI 1,000 MG/10 ML SYRINGE IVP STA (18:11)
[2019-08-01] MEDS ORDERED: METOCLOPRAMIDE 5 MG/ML 2 ML VIAL IVP STA (18:53)
[2019-08-01 20:10] VITALS: PULSE 95; RESP 16; TEMP 98
[2019-08-01 20:11] VITALS: BP 96/53
== END 2019-08-01 20:15 | disposition home or self-care (01) ==
LOC: EC 16:47
DX: N39.0 Urinary tract infection, site not specified (principal); R00.0 Tachycardia, unspecified; D72.819 Decreased white blood cell count, unspecified; R11.2 Nausea with vomiting, unspecified; Z88.8 Allergy status to other drugs, medicaments and biological substances; Z91.010 Allergy to peanuts; Z91.018 Allergy to other foods; Z87.19 Personal history of other diseases of the digestive system
CPT/HCPCS: 36415; 80053; 85025; 81001; 81025; 87040; 87086; 99284; 96365; 96366; 96375 ×2; 96361; J2765; J2405; J0696

== ENCOUNTER 2019-08-02 22:27 | Inpatient (IN) | payer OTHER ==
[2019-08-02] MEDS ORDERED: ONDANSETRON 4 MG/2 ML VIAL IVP STA (22:49)
[2019-08-02] MEDS ORDERED: ACETAMINOPHEN TAB 500 MG TAB PO STA (22:49)
[2019-08-02] MEDS ORDERED: SODIUM CHLORIDE 0.9% 1,000 ML IV STA (22:49)
--- NOTE | 2019-08-02 22:57 | ED ---
Nausea/Vomiting/Diarrhea HPI - General Source: patient Mode of arrival: ambulatory Limitations: no limitations <Yolie Del Cid - Last Filed: 08/03/19 02:01> <Guy Blanco - Last Filed: 08/10/19 07:06> - General Chief complaint: Nausea/Vomiting/Diarrhea Stated complaint: Revisit Fever, NVD Time Seen by Provider: 08/02/19 22:37 - History of Present Illness Initial comments: Patient is a 24-year-old female presenting to the emergency Department with complaints of a fever, nausea, vomiting 5 days now. Patient was seen in the ER yesterday and was diagnosed with a UTI. She was sent home with antibiotics ho wever patient has not been able to take these antibiotics secondary to the vomiting. Patient continues to have a fever. Patient states today she started developing a cough and mild shortness of breath. Patient does admit to history of mild asthma and uses an albuterol inhaler at home as needed. Patient admits to some mild generalized abdominal discomfort, no sharp severe pains. She denies any previous abdominal surgeries. She denies any other pertinent past medical history. Patient states she has not been able to Tylenol or Motrin at home for fever secondary to the vomiting. Patient denies headache, sore throat, chest pain, diarrhea. Patient states she has not been able to eat or drink very much the last 4-5 days. There are no other complaints at this time. Upon arrival to the ER, patient is febrile to 103.1, pulse is 117, respiratory rate 20, blood pressure is 96/61, 97% on room air. (Yolie Del Cid) - Related Data Home Medications Medication Instructions Recorded Confirmed Albuterol Inhaler [Ventolin Hfa 1 puff INHALATION RT-Q4H PRN 08/01/19 08/03/19 Inhaler] Previous Rx's Medication Instructions Recorded Cephalexin [Keflex] 500 mg PO Q6HR 14 Days #56 cap 08/01/19 Ondansetron [Zofran ODT] 4 mg PO Q8HR PRN #15 tab 08/01/19 Allergies Allergy/AdvReac Type Severity Reaction Status Date / Time peanut Allergy Anaphylaxis Verified 08/03/19 07:33 tree nut Allergy Anaphylaxis Verified 08/03/19 07:33 sertraline [From Zoloft] AdvReac HEARTBURN Verified 08/03/19 07:33 Review of Systems ROS Other: All systems not noted in ROS Statement are negative. <Yolie Del Cid - Last Filed: 08/03/19 02:01> ROS Other: All systems not noted in ROS Statement are negative. <Guy Blanco - Last Filed: 08/10/19 07:06> ROS Statement: Those systems with pertinent positive or pertinent negative responses have been documented in the HPI. Past Medical History Past Medical History: No Reported History Additional Past Medical History / Comment(s): NAUSEA/VOMITING, costocondritis, ibs History of Any Multi-Drug Resistant Organisms: None Reported Past Surgical History: No Surgical Hx Reported Past Anesthesia/Blood Transfusion Reactions: No Reported Reaction Past Psychological History: Bipolar Smoking Status: Never smoker Past Alcohol Use History: None Reported Past Drug Use History: None Reported - Past Family History Mother Family Medical History: No Reported History <Yolie Del Cid - Last Filed: 08/03/19 02:01> General Exam Limitations: no limitations <Yolie Del Cid - Last Filed: 08/03/19 02:01> - General Exam Comments Initial Comments: GENERAL: Patient appears fatigued, actively dry heaving, in mild distress secondary to vomiting. HEAD: Atraumatic, normocephalic. EYES: Pupils equal round and reactive to light, extraocular movements intact, sclera anicteric, conjunctiva are normal. ENT: TMs normal, nares patent, oropharynx clear without exudates. Dry mucous membranes. NECK: Normal range of motion, supple without lymphadenopathy or JVD. LUNGS: Breath sounds clear to auscultation bilaterally and equal. No wheezes rales or rhonchi. HEART: Tachycardia rate and rhythm without murmurs, rubs or gallops. ABDOMEN: Generalized abdominal discomfort, increased over epigastric and upper abdomen. Soft, normoactive bowel sounds. No guarding, no rebound. No masses appreciated. : Deferred EXTREMITIES: Normal range of motion, no pitting or edema. No clubbing or cyanosis. NEUROLOGICAL: Normal speech, normal gait. PSYCH: Normal mood, normal affect. SKIN: Warm, Dry, normal turgor, no rashes or lesions noted. (Yolie Del Cid) Course Vital Signs 08/02/19 08/03/19 08/03/19 22:30 00:38 01:43 Temperature 103.1 F H 101.8 F H Pulse Rate 117 H 96 Respiratory 20 17 Rate Blood Pressure 96/61 103/62 O2 Sat by Pulse 97 94 L 90 L Oximetry 08/03/19 08/03/19 01:54 02:30 Temperature 98.9 F Pulse Rate 89 Respiratory 18 Rate Blood Pressure 117/73 O2 Sat by Pulse 93 L Oximetry Medical Decision Making - Lab Data Result diagrams: 08/02/19 22:53 08/02/19 22:53 <Yolie Del Cid - Last Filed: 08/03/19 02:01> - Lab Data Result diagrams: 08/02/19 22:53 08/02/19 22:53 <Guy Blanco - Last Filed: 08/10/19 07:06> - Medical Decision Making Patient is a 24-year-old female presenting with fever, nausea, vomiting 5 days. Today she developed cough, shortness of breath. She has a history of asthma. Patient arrived febrile, tachycardia. On exam patient seemed to have diminished breath sounds in the lower lung [place] bilaterally. She is actively dry heaving. Lab work reveals normal white count, elevated d-dimer at 0.96, lactic acid is normal at 1.0, CRP is elevated at 36.7. Influenza is negative. Covid 19 testing is pending at this time. Chest x-ray reveals mild increasing infrahilar lung markings bilaterally. Chest CTA was ordered secondary to elevated d-dimer, there is no evidence for acute PE. Patchy bilateral mid to lower lung field infiltrates. Patient was given fluids, Tylenol, Zofran. On reexamination patient continues to have a fever and oxygen saturation is anywhere from 88-92% on room air. Given patient's history and clinical symptom s, there is a strong suspicion for Covid 19. Patient will be admitted and be placed on oxygen. She was given azithromycin. Patient was accepted by Dr. Garza. Consulted pulmonology. EKG was obtained just prior to patient being transferred to the floor and shows prolonged QT. (Yolie Del Cid) I saw this patient in conjunction with the physician assistant media planner. I performed independent history and physical exam. Agree with case management. (Guy Blanco) - Lab Data Lab Results 08/02/19 08/02/19 08/02/19 Range/Units 22:53 22:53 22:53 WBC 4.1 (3.8-10.6) k/uL RBC 4.37 (3.80-5.40) m/uL Hgb 12.9 (11.4-16.0) gm/dL Hct 37.5 (34.0-46.0) % MCV 85.8 (80.0-100.0) fL MCH 29.4 (25.0-35.0) pg MCHC 34.3 (31.0-37.0) g/dL RDW 13.0 (11.5-15.5) % Plt Count 146 L (150-450) k/uL Neutrophils % 72 % Lymphocytes % 24 % Monocytes % 2 % Eosinophils % 1 % Basophils % 0 % Neutrophils # 2.9 (1.3-7.7) k/uL Lymphocytes # 1.0 (1.0-4.8) k/uL Monocytes # 0.1 (0-1.0) k/uL Eosinophils # 0.0 (0-0.7) k/uL Basophils # 0.0 (0-0.2) k/uL PT (9.0-12.0) sec INR (<1.2) APTT (22.0-30.0) sec D-Dimer 0.96 H (<0.60) mg/L FEU Sodium 137 (137-145) mmol/L Potassium 4.4 (3.5-5.1) mmol/L Chloride 105 (98-107) mmol/L Carbon Dioxide 24 (22-30) mmol/L Anion Gap 8 mmol/L BUN 14 (7-17) mg/dL Creatinine 0.96 (0.52-1.04) mg/dL Est GFR (CKD-EPI)AfAm >90 (>60 ml/min/1.73 sqM) Est GFR (CKD-EPI)NonAf 83 (>60 ml/min/1.73 sqM) Glucose 109 H (74-99) mg/dL Plasma Lactic Acid Rohit (0.7-2.0) mmol/L Calcium 8.4 (8.4-10.2) mg/dL Magnesium (1.6-2.3) mg/dL Ferritin 41.0 (10.0-291.0) ng/mL Total Bilirubin 0.4 (0.2-1.3) mg/dL AST 24 (14-36) U/L ALT 11 (4-34) U/L Alkaline Phosphatase 42 (38-126) U/L Lactate Dehydrogenase (313-618) U/L C-Reactive Protein 36.7 H (<10.0) mg/L Total Protein 6.6 (6.3-8.2) g/dL Albumin 3.8 (3.5-5.0) g/dL Procalcitonin (0.02-0.09) ng/mL Urine Color Urine Appearance (Clear) Urine pH (5.0-8.0) Ur Specific [place] (1.001-1.035) Urine Protein (Negative) Urine Glucose (UA) (Negative) Urine Ketones (Negative) Urine Blood (Negative) Urine Nitrite (Negative) Urine Bilirubin (Negative) Urine Urobilinogen (<2.0) mg/dL Ur Leukocyte Esterase (Negative) Urine RBC (0-5) /hpf Urine WBC (0-5) /hpf Ur Squamous Epith Cells (0-4) /hpf Urine Mucus (None) /hpf Urine HCG, Qual (Not Detectd) Coronavirus (PCR) (Not Detectd) Influenza Type A RNA (Not Detectd) Influenza Type B (PCR) (Not Detectd) 08/02/19 08/02/19 08/02/19 Range/Units 22:53 22:53 22:53 WBC (3.8-10.6) k/uL RBC (3.80-5.40) m/uL Hgb (11.4-16.0) gm/dL Hct (34.0-46.0) % MCV (80.0-100.0) fL MCH (25.0-35.0) pg MCHC (31.0-37.0) g/dL RDW (11.5-15.5) % Plt Count (150-450) k/uL Neutrophils % % Lymphocytes % % Monocytes % % Eosinophils % % Basophils % % Neutrophils # (1.3-7.7) k/uL Lymphocytes # (1.0-4.8) k/uL Monocytes # (0-1.0) k/uL Eosinophils # (0-0.7) k/uL Basophils # (0-0.2) k/uL PT 10.5 (9.0-12.0) sec INR 1.0 (<1.2) APTT 24.5 (22.0-30.0) sec D-Dimer (<0.60) mg/L FEU Sodium (137-145) mmol/L Potassium (3.5-5.1) mmol/L Chloride (98-107) mmol/L Carbon Dioxide (22-30) mmol/L Anion Gap mmol/L BUN (7-17) mg/dL Creatinine (0.52-1.04) mg/dL Est GFR (CKD-EPI)AfAm (>60 ml/min/1.73 sqM) Est GFR (CKD-EPI)NonAf (>60 ml/min/1.73 sqM) Glucose (74-99) mg/dL Plasma Lactic Acid Rohit 1.0 (0.7-2.0) mmol/L Calcium (8.4-10.2) mg/dL Magnesium (1.6-2.3) mg/dL Ferritin (10.0-291.0) ng/mL Total Bilirubin (0.2-1.3) mg/dL AST (14-36) U/L ALT (4-34) U/L Alkaline Phosphatase (38-126) U/L Lactate Dehydrogenase (313-618) U/L C-Reactive Protein (<10.0) mg/L Total Protein (6.3-8.2) g/dL Albumin (3.5-5.0) g/dL Procalcitonin (0.02-0.09) ng/mL Urine Color Urine Appearance (Clear) Urine pH (5.0-8.0) Ur Specific [place] (1.001-1.035) Urine Protein (Negative) Urine Glucose (UA) (Negative) Urine Ketones (Negative) Urine Blood (Negative) Urine Nitrite (Negative) Urine Bilirubin (Negative) Urine Urobilinogen (<2.0) mg/dL Ur Leukocyte Esterase (Negative) Urine RBC (0-5) /hpf Urine WBC (0-5) /hpf Ur Squamous Epith Cells (0-4) /hpf Urine Mucus (None) /hpf Urine HCG, Qual (Not Detectd) Coronavirus (PCR) (Not Detectd) Influenza Type A RNA Not Detected (Not Detectd) Influenza Type B (PCR) Not Detected (Not Detectd) 08/02/19 08/02/19 08/02/19 Range/Units 22:53 22:53 22:57 WBC (3.8-10.6) k/uL RBC (3.80-5.40) m/uL Hgb (11.4-16.0) gm/dL Hct (34.0-46.0) % MCV (80.0-100.0) fL MCH (25.0-35.0) pg MCHC (31.0-37.0) g/dL RDW (11.5-15.5) % Plt Count (150-450) k/uL Neutrophils % % Lymphocytes % % Monocytes % % Eosinophils % % Basophils % % Neutrophils # (1.3-7.7) k/uL Lymphocytes # (1.0-4.8) k/uL Monocytes # (0-1.0) k/uL Eosinophils # (0-0.7) k/uL Basophils # (0-0.2) k/uL PT (9.0-12.0) sec INR (<1.2) APTT (22.0-30.0) sec D-Dimer (<0.60) mg/L FEU Sodium (137-145) mmol/L Potassium (3.5-5.1) mmol/L Chloride (98-107) mmol/L Carbon Dioxide (22-30) mmol/L Anion Gap mmol/L BUN (7-17) mg/dL Creatinine (0.52-1.04) mg/dL Est GFR (CKD-EPI)AfAm (>60 ml/min/1.73 sqM) Est GFR (CKD-EPI)NonAf (>60 ml/min/1.73 sqM) Glucose (74-99) mg/dL Plasma Lactic Acid Rohit (0.7-2.0) mmol/L Calcium (8.4-10.2) mg/dL Magnesium 2.0 (1.6-2.3) mg/dL Ferritin (10.0-291.0) ng/mL Total Bilirubin (0.2-1.3) mg/dL AST (14-36) U/L ALT (4-34) U/L Alkaline Phosphatase (38-126) U/L Lactate Dehydrogenase 641 H (313-618) U/L C-Reactive Protein (<10.0) mg/L Total Protein (6.3-8.2) g/dL Albumin (3.5-5.0) g/dL Procalcitonin 0.06 (0.02-0.09) ng/mL Urine Color Urine Appearance (Clear) Urine pH (5.0-8.0) Ur Specific [place] (1.001-1.035) Urine Protein (Negative) Urine Glucose (UA) (Negative) Urine Ketones (Negative) Urine Blood (Negative) Urine Nitrite (Negative) Urine Bilirubin (Negative) Urine Urobilinogen (<2.0) mg/dL Ur Leukocyte Esterase (Negative) Urine RBC (0-5) /hpf Urine WBC (0-5) /hpf Ur Squamous Epith Cells (0-4) /hpf Urine Mucus (None) /hpf Urine HCG, Qual (Not Detectd) Coronavirus (PCR) DETECTED A (Not Detectd) Influenza Type A RNA (Not Detectd) Influenza Type B (PCR) (Not Detectd) 08/02/19 08/02/19 Range/Units 23:01 23:01 WBC (3.8-10.6) k/uL RBC (3.80-5.40) m/uL Hgb (11.4-16.0) gm/dL Hct (34.0-46.0) % MCV (80.0-100.0) fL MCH (25.0-35.0) pg MCHC (31.0-37.0) g/dL RDW (11.5-15.5) % Plt Count (150-450) k/uL Neutrophils % % Lymphocytes % % Monocytes % % Eosinophils % % Basophils % % Neutrophils # (1.3-7.7) k/uL Lymphocytes # (1.0-4.8) k/uL Monocytes # (0-1.0) k/uL Eosinophils # (0-0.7) k/uL Basophils # (0-0.2) k/uL PT (9.0-12.0) sec INR (<1.2) APTT (22.0-30.0) sec D-Dimer (<0.60) mg/L FEU Sodium (137-145) mmol/L Potassium (3.5-5.1) mmol/L Chloride (98-107) mmol/L Carbon Dioxide (22-30) mmol/L Anion Gap mmol/L BUN (7-17) mg/dL Creatinine (0.52-1.04) mg/dL Est GFR (CKD-EPI)AfAm (>60 ml/min/1.73 sqM) Est GFR (CKD-EPI)NonAf (>60 ml/min/1.73 sqM) Glucose (74-99) mg/dL Plasma Lactic Acid Rohit (0.7-2.0) mmol/L Calcium (8.4-10.2) mg/dL Magnesium (1.6-2.3) mg/dL Ferritin (10.0-291.0) ng/mL Total Bilirubin (0.2-1.3) mg/dL AST (14-36) U/L ALT (4-34) U/L Alkaline Phosphatase (38-126) U/L Lactate Dehydrogenase (313-618) U/L C-Reactive Protein (<10.0) mg/L Total Protein (6.3-8.2) g/dL Albumin (3.5-5.0) g/dL Procalcitonin (0.02-0.09) ng/mL Urine Color Light Red Urine Appearance Clear (Clear) Urine pH 6.0 (5.0-8.0) Ur Specific [place] 1.032 (1.001-1.035) Urine Protein 1+ H (Negative) Urine Glucose (UA) Negative (Negative) Urine Ketones 1+ H (Negative) Urine Blood Large H (Negative) Urine Nitrite Negative (Negative) Urine Bilirubin Negative (Negative) Urine Urobilinogen 6.0 (<2.0) mg/dL Ur Leukocyte Esterase Small H (Negative) Urine RBC >182 H (0-5) /hpf Urine WBC 1 (0-5) /hpf Ur Squamous Epith Cells 2 (0-4) /hpf Urine Mucus Many H (None) /hpf Urine HCG, Qual Not Detected (Not Detectd) Coronavirus (PCR) (Not Detectd) Influenza Type A RNA (Not Detectd) Influenza Type B (PCR) (Not Detectd) - EKG Data EKG Comments: Ventricular rate 88, FL interval 124, QTQTC 386/467. Normal sinus rhythm. Nonspecific T-wave abnormality, prolonged QT. No signs of acute ischemia. (Yolie Del Cid) Disposition Is patient prescribed a controlled substance at d/c from ED?: No Decision Date: 08/03/19 Decision Time: 01:40 <Yolie Del Cid - Last Filed: 08/03/19 02:01> <Guy Blanco - Last Filed: 08/10/19 07:06> Clinical Impression: Dehydration, Suspected COVID-19 virus infection, Fever, Dyspnea, Nausea & vomiting Disposition: ADMITTED IP TO THIS [facility] Condition: Good
[2019-08-02 23:05] LABS: Basophils % (A) 0 %; Eosinophils % (A) 1 %; HCT 37.5 % (34.0-46.0); HGB 12.9 gm/dL (11.4-16.0); Lymphocytes % (A) 24 %; MCH 29.4 pg (25.0-35.0); MCHC 34.3 g/dL (31.0-37.0); MCV 85.8 fL (80.0-100.0); Mean Platelet Volume 10.1; Monocytes # (A) 0.1 k/uL (0-1.0); Monocytes % (A) 2 %; Neutrophils # (A) 2.9 k/uL (1.3-7.7); Neutrophils % (A) 72 %; Platelet Count 146 k/uL (150-450); RBC 4.37 m/uL (3.80-5.40); WBC 4.1 k/uL (3.8-10.6)
[2019-08-02 23:17] LABS: ALT 11 U/L (4-34); AST 24 U/L (14-36); African American GFR (CKD) >90 (>60 ml/min/1.73 sqM); Albumin 3.8 g/dL (3.5-5.0); Alkaline Phosphatase 42 U/L (38-126); Anion Gap 8 mmol/L; Blood Urea Nitrogen 14 mg/dL (7-17); C Reactive Protein 36.7 mg/L (<10.0); Calcium 8.4 mg/dL (8.4-10.2); Carbon Dioxide 24 mmol/L (22-30); Chloride 105 mmol/L (98-107); Glucose 109 mg/dL (74-99); Non-African American GFR(CKD) 83 (>60 ml/min/1.73 sqM); Potassium 4.4 mmol/L (3.5-5.1); Sodium 137 mmol/L (137-145); Total Bilirubin 0.4 mg/dL (0.2-1.3); Total Protein 6.6 g/dL (6.3-8.2)
--- NOTE | 2019-08-02 23:56 | XR ---
EXAMINATION TYPE: XR chest 1V DATE OF EXAM: 08/02/2019 COMPARISON: 07/26/2018 INDICATION: Fever, cough TECHNIQUE: Single frontal view of the chest is obtained. FINDINGS: The heart size is normal. The pulmonary vasculature is normal. There is mild increased lung markings in the infrahilar regions bilaterally. Focal consolidation is n ot evident. IMPRESSION: 1. Mild increasing infrahilar lung markings bilaterally.
[2019-08-02 23:57] LABS: Appearance,Urine Clear (Clear); Bilirubin,Urine Negative (Negative); Blood,Urine Large (Negative); Color,Urine Light Red; Glucose,Urine (UA) Negative (Negative); Ketones,Urine 1+ (Negative); Leukocyte Esterase,Urine Small (Negative); Mucus,Urine Many /hpf; Nitrite,Urine Negative (Negative); Protein,Urine 1+ (Negative); RBC,Urine >182 /hpf (0-5); Specific Gravity,Urine 1.032 (1.001-1.035); Squamous Epithelial Cell,Urine 2 /hpf (0-4); WBC,Urine 1 /hpf (0-5)
--- NOTE | 2019-08-02 23:59 | CT ---
CT CHEST FOR PULMONARY EMBOLISM. EXAMINATION TYPE: CT chest angio for PE DATE OF EXAM: 08/02/2019 INDICATION: dyspnea CT DLP: 661.5 mGycm, Automated exposure control for dose reduction was used. CONTRAST: Patient injected with 60 mL of Isovue 370. COMPARISON: CT chest 04/14/2018 TECHNIQUE: CT of the chest is performed on a spiral scan at 2 mm thick sections. Study is performed with intravenous contrast timed for evaluation for pulmonary embolism. This will limit additional po rtions of the evaluation. 3-D MIP images reconstructed by the technologist are reviewed on the compu ter in the coronal and sagittal planes. FINDINGS: No persistent filling defects are evident to suggest an acute pulmonary embolism. No mediastinal or hilar adenopathy enlarged by CT criteria is evident. The ascending aorta diameter at the level of the main pulmonary artery is 2.7 cm. The main pulmonary artery diameter at the bifur cation is 2.9 cm. Consider some pulmonary hypertension There is some patchy infiltrate within the periphery of the lingula. Series 401 image 56. Some mild i nfiltrate is scattered through the mid to posterior left lower lobe. There is a right basilar infiltr ate present. Some mild patchy infiltrate is in the periphery of the right midlung. Limited CT section through the upper abdomen are unremarkable. IMPRESSIONS: 1. Patchy bilateral mid to lower lung field on independent infiltrates. Correlate for infection. Pneu monia should be considered. 2. No acute pulmonary embolism.
[2019-08-03] MEDS ORDERED: AZITHROMYCIN 500 MG TAB PO STA (00:06)
[2019-08-03] MEDS ORDERED: ONDANSETRON 4 MG/2 ML VIAL IVP STA (00:37)
[2019-08-03] MEDS ORDERED: SODIUM CHLORIDE 0.9% 1,000 ML IV STA (00:37)
[2019-08-03] MEDS ORDERED: ALBUTEROL HFA INHALER INHALATION PRN (01:31)
[2019-08-03] MEDS ORDERED: ACETAMINOPHEN TAB 325 MG TAB PO PRN (01:35)
[2019-08-03] MEDS ORDERED: ONDANSETRON 4 MG/2 ML VIAL IVP PRN (01:35)
[2019-08-03] MEDS ORDERED: NALOXONE 0.4 MG/ML 1 ML VIAL IV PRN (01:35)
[2019-08-03] MEDS ORDERED: SODIUM CHLORIDE 0.9% 1,000 ML IV SCH (01:45)
[2019-08-03 01:56] LABS: Partial Thromboplastin Time 24.5 sec (22.0-30.0); Prothrombin Time 10.5 sec (9.0-12.0)
[2019-08-03] MEDS ORDERED: METOCLOPRAMIDE 5 MG/ML 2 ML VIAL IVP PRN (01:58)
[2019-08-03 08:00] VITALS: RESP 18
[2019-08-03] MEDS ORDERED: HYDROXYCHLOROQUINE SULFATE 200 MG TAB PO SCH (09:00)
[2019-08-03 11:16] VITALS: BP 119/73; TEMP 98.6
--- NOTE | 2019-08-03 12:57 | P.HPIM ---
History of Present Illness H&P Date: 08/03/19 Chief Complaint: Fever, nausea vomiting HISTORY AND PHYSICAL AND DISCHARGE SUMMARY: This is a 24-year-old female patient of Dr. Muniz with past medical history of mild intermittent asthma, IBS, bipolar disorder. Patient gives history of having a fever for 5 days. Yesterday she started having shortness of breath and hard to breathe, cough also started yesterday with mucus production. She denies having any abdominal symptoms, no abdominal pain, nausea, vomiting or diarrhea. She denies any lower extremity edema. 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 Patient has history of asthma but has never been hospitalized for this and has not been on steroids. Patient was on antibiotics prior to admission for urinary tract infection. Patient came into [facility] emergency center for evaluation. She was found to have a fever of 103.1, heart rate 117, respiratory rate of 20, pulse ox 97% on room air, blood pressure 96/61. WBC 4.1, hemoglobin 12.9, platelet count 146, d-dimer 0.96. Electrolytes and renal function normal. Liver function tests normal, C-reactive protein 36.7. Influenza testing was negative and COVID-19 testing obtained. Magnesium 2.0. LDH 641. HCG negative. Urinalysis clear, blood large, leukoesterase small. EKG is a normal sinus rhythm with QTC of 467. Chest x-ray revealed mild increasing infrahilar lung markings bilaterally. CT angiogram of the chest revealed patchy bilateral mid to lower lung field infiltrates. Correlate for infection. Pneumonia should be considered. No pulmonary embolism. Patient received 1 dose of azithromycin and continued on Plaquenil. Patient admitted to the [facility] floor and consult requested with pulmonary medicine. At the time of evaluation, patient states that she does not want stay in the hospital and wants to sign out AMA. She understands that we will not be able to provide a prescription for hydroxychloroquine and if she has worsening symptoms she'll need to come back to the emergency center. Patient verbalizes understanding and will be discharged home today in stable condition. Review of Systems Constitutional: Reports chills, Reports fatigue, Reports fever, Denies anorexia Eyes: denies blurred vision, denies pain Ears, nose, mouth and throat: Denies dysphagia, Denies headache, Denies nasal congestion, Denies nasal discharge, Denies sore throat, Denies vertigo Cardiovascular: Denies chest pain, Denies decreased exercise tolerance, Denies dyspnea on exertion, Denies edema, Denies leg edema, Denies lightheadedness, Denies syncope Respiratory: Reports cough, Reports cough with sputum, Reports dyspnea, Reports respiratory infections, Denies excessive sputum, Denies hemoptysis, Denies home oxygen Gastrointestinal: Denies abdominal pain, Denies diarrhea, Denies loss of appetite, Denies nausea, Denies vomiting Genitourinary: Denies dysuria, Denies urgency, Denies urinary frequency Musculoskeletal: Denies frequent falls, Denies gait dysfunction, Denies muscle weakness, Denies myalgias Integumentary: Denies pruritus, Denies rash, Denies wounds Neurological: Denies change in mentation, Denies change in speech, Denies numbness, Denies weakness Psychiatric: Denies anxiety, Denies depression Endocrine: Denies fatigue, Denies weight change Past Medical History Past Medical History: Asthma, GERD/Reflux Additional Past Medical History / Comment(s): NAUSEA/VOMITING, costocondritis, ibs History of Any Multi-Drug Resistant Organisms: None Reported Past Surgical History: No Surgical Hx Reported Past Anesthesia/Blood Transfusion Reactions: No Reported Reaction Past Psychological History: Bipolar Smoking Status: Never smoker Past Alcohol Use History: None Reported Additional Past Alcohol Use History / Comment(s): Patient is a lifelong nonsmoker. She denies any alcohol use. She works at [employer] as a restaurant cashier. She lives at home with her mother father and one brother and one sister. Past Drug Use History: None Reported - Past Family History Mother Family Medical History: No Reported History Additional Family Medical History / Comment(s): Mother is alive with no major medical problems. Father Additional Family Medical History / Comment(s): Father is alive with history of diabetes. Brother(s) Additional Family Medical History / Comment(s): Patient has 1 brother with asthma. Patient's 1 sister with no major medical problems. Patient does not have any children. Medications and Allergies Home Medications Medication Instructions Recorded Confirmed Type Albuterol Inhaler [Ventolin Hfa 1 puff INHALATION RT-Q4H PRN 08/01/19 08/03/19 History Inhaler] Cephalexin [Keflex] 500 mg PO Q6HR 14 Days #56 cap 08/01/19 08/03/19 Rx Ondansetron [Zofran ODT] 4 mg PO Q8HR PRN #15 tab 08/01/19 08/03/19 Rx Allergies Allergy/AdvReac Type Severity Reaction Status Date / Time peanut Allergy Anaphylaxis Verified 08/03/19 07:33 tree nut Allergy Anaphylaxis Verified 08/03/19 07:33 sertraline [From Zoloft] AdvReac HEARTBURN Verified 08/03/19 07:33 Physical Exam Vitals: Vital Signs Temp Pulse Pulse Resp BP BP Pulse Ox 08/03/19 07:00 98.4 F 90 18 101/66 97 08/03/19 02:54 98.2 F 67 20 94/66 97 08/03/19 02:42 18 08/03/19 02:30 98.9 F 08/03/19 01:54 89 18 117/73 93 L 08/03/19 01:43 90 L 08/03/19 00:38 101.8 F H 96 17 103/62 94 L 08/02/19 22:30 103.1 F H 117 H 20 96/61 97 Intake and Output 08/02/19 08/03/19 08/03/19 22:59 06:59 14:59 Other: Voiding Method Toilet Weight 117.934 kg 117.934 kg Gen: This is a 24-year-old obese female. Patient is resting flat in bed appears to be in no acute distress. No respiratory distress is noted. HEENT: Head is atraumatic, normocephalic. Pupils equal, round. Sclerae is anicteric. NECK: Supple. No JVD. No lymphadenopathy. No thyromegaly. LUNGS: Clear to auscultation. No wheezes or rhonchi. No intercostal retractions. HEART: Regular rate and rhythm. No murmur. ABDOMEN: Soft. Bowel sounds are present. No masses. No tenderness. EXTREMITIES: No pedal edema. No calf tenderness. NEUROLOGICAL: Patient is awake, alert and oriented x3. Cranial nerves 2 through 12 are grossly intact. Results CBC & Chem 7: 08/02/19 22:53 08/02/19 22:53 Labs: Abnormal Lab Results - Last 24 Hours (Table) 08/02/19 08/02/19 08/02/19 Range/Units 22:53 22:53 22:53 Plt Count 146 L (150-450) k/uL D-Dimer 0.96 H (<0.60) mg/L FEU Glucose 109 H (74-99) mg/dL Lactate Dehydrogenase (313-618) U/L C-Reactive Protein 36.7 H (<10.0) mg/L Urine Protein (Negative) Urine Ketones (Negative) Urine Blood (Negative) Ur Leukocyte Esterase (Negative) Urine RBC (0-5) /hpf Urine Mucus (None) /hpf 08/02/19 08/02/19 Range/Units 22:53 23:01 Plt Count (150-450) k/uL D-Dimer (<0.60) mg/L FEU Glucose (74-99) mg/dL Lactate Dehydrogenase 641 H (313-618) U/L C-Reactive Protein (<10.0) mg/L Urine Protein 1+ H (Negative) Urine Ketones 1+ H (Negative) Urine Blood Large H (Negative) Ur Leukocyte Esterase Small H (Negative) Urine RBC >182 H (0-5) /hpf Urine Mucus Many H (None) /hpf Thrombosis Risk Factor Assmnt - Choose All That Apply Each Factor Represents 1 point: Obesity (BMI >25) Thrombosis Risk Factor Assessment Total Risk Factor Score: 1 Thrombosis Risk Factor Assessment Level: Low Risk Assessment and Plan Plan: 1. Pneumonia suspicious for COVID-19 pneumonitis. Consult with pulmonary medicine. Patient is on Plaquenil 400 mg twice daily. Patient received 1 dose of azithromycin 500 mg in the emergency center. Continue albuterol inhaler every 6 hours as needed, Tylenol as needed for pain or fever. 2. QT prolongation on initial EKG. Continue to monitor closely while on Plaquenil. 3. Mild intermittent asthma, stable. Continue albuterol inhaler as needed. 4. Gastroesophageal reflux disease and GI prophylaxis. Protonix daily. 5. IBS, stable. 6. Bipolar disorder, stable. 7. DVT prophylaxis. Lovenox. Patient will be admitted to the hospital for a minimum of 2 night stay. Discharge plan: return home Discharge Medication List Albuterol Inhaler [Ventolin Hfa Inhaler] 1 puff INHALATION RT-Q4H PRN 04/06/20 [History] Cephalexin [Keflex] 500 mg PO Q6HR 14 Days #56 cap 08/01/19 [Rx] Ondansetron [Zofran ODT] 4 mg PO Q8HR PRN #15 tab 08/01/19 [Rx] Impression and plan of care have been directed as dictated by the signing physician. Rubina Aviles nurse practitioner acting as scribe for signing physician.
[2019-08-03] MEDS ORDERED: ASCORBIC ACID 500 MG TAB PO SCH (13:00)
--- NOTE | 2019-08-03 13:21 | P.CNPUL ---
History of Present Illness Consult date: 08/03/19 Reason for consult: dyspnea, cough Chief complaint: Fever and shortness of breath for 5-6 days History of present illness: This is a 24-year-old female patient sees Dr. 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, she presented into emergency department with a fever of 103 tachypneic and tachycardic heart rate of 110, oxygen saturation 91% chest x-ray shows bilateral prominent interstitial Petrin more at the bases, computed tomography scan confirmed clinical finding, patient has been placed on Zithromax and Plaquenil, her fever Petrin has improved currently she is afebrile wishes to go home Review of Systems All systems: negative Past Medical History Past Medical History: Asthma, GERD/Reflux Additional Past Medical History / Comment(s): NAUSEA/VOMITING, costocondritis, ibs History of Any Multi-Drug Resistant Organisms: None Reported Past Surgical History: No Surgical Hx Reported Past Anesthesia/Blood Transfusion Reactions: No Reported Reaction Past Psychological History: Bipolar Smoking Status: Never smoker Past Alcohol Use History: None Reported Additional Past Alcohol Use History / Comment(s): Patient is a lifelong nonsmoker. She denies any alcohol use. 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 She lives at home with her mother father and one brother and one sister. Past Drug Use History: None Reported - Past Family History Mother Family Medical History: No Reported History Additional Family Medical History / Comment(s): Mother is alive with no major medical problems. Father Additional Family Medical History / Comment(s): Father is alive with history of diabetes. Brother(s) Additional Family Medical History / Comment(s): Patient has 1 brother with asthma. Patient's 1 sister with no major medical problems. Patient does not have any children. Medications and Allergies Home Medications Medication Instructions Recorded Confirmed Type Albuterol Inhaler [Ventolin Hfa 1 puff INHALATION RT-Q4H PRN 08/01/19 08/03/19 History Inhaler] Cephalexin [Keflex] 500 mg PO Q6HR 14 Days #56 cap 08/01/19 08/03/19 Rx Ondansetron [Zofran ODT] 4 mg PO Q8HR PRN #15 tab 08/01/19 08/03/19 Rx Allergies Allergy/AdvReac Type Severity Reaction Status Date / Time peanut Allergy Anaphylaxis Verified 08/03/19 07:33 tree nut Allergy Anaphylaxis Verified 08/03/19 07:33 sertraline [From Zoloft] AdvReac HEARTBURN Verified 08/03/19 07:33 Physical Exam Vitals: Vital Signs Temp Pulse Pulse Resp BP BP Pulse Ox 08/03/19 11:15 98.6 F 87 18 119/73 99 08/03/19 07:00 98.4 F 90 18 101/66 97 08/03/19 02:54 98.2 F 67 20 94/66 97 08/03/19 02:42 18 08/03/19 02:30 98.9 F 08/03/19 01:54 89 18 117/73 93 L 08/03/19 01:43 90 L 08/03/19 00:38 101.8 F H 96 17 103/62 94 L 08/02/19 22:30 103.1 F H 117 H 20 96/61 97 Intake and Output 08/02/19 08/03/19 08/03/19 22:59 06:59 14:59 Other: Voiding Method Toilet Weight 117.934 kg 117.934 kg - Constitutional General appearance: disheveled, no acute distress, obese - EENT Eyes: EOMI, PERRLA Ears: bilateral: normal - Neck Neck: normal ROM Thyroid: bilateral: normal size - Respiratory Respiratory: bilateral: CTA - Cardiovascular Rhythm: regular Heart sounds: normal: S1, S2 - Musculoskeletal Musculoskeletal: gait normal, generalized weakness, strength equal bilaterally - Psychiatric Psychiatric: A&O x's 3, appropriate affect, intact judgment & insight Results - Laboratory Findings CBC and BMP: 08/02/19 22:53 08/02/19 22:53 PT/INR, D-dimer PT 10.5 sec (9.0-12.0) 08/02/19 22:53 INR 1.0 (<1.2) 08/02/19 22:53 D-Dimer 0.96 mg/L FEU (<0.60) H 04/07/20 22:53 Abnormal lab findings: Abnormal Labs 08/02/19 08/02/19 08/02/19 22:53 22:53 22:53 Plt Count 146 L D-Dimer 0.96 H Glucose 109 H Lactate Dehydrogenase C-Reactive Protein 36.7 H Urine Protein Urine Ketones Urine Blood Ur Leukocyte Esterase Urine RBC Urine Mucus 08/02/19 08/02/19 22:53 23:01 Plt Count D-Dimer Glucose Lactate Dehydrogenase 641 H C-Reactive Protein Urine Protein 1+ H Urine Ketones 1+ H Urine Blood Large H Ur Leukocyte Esterase Small H Urine RBC >182 H Urine Mucus Many H - Diagnostic Findings Chest x-ray: report reviewed, image reviewed CT scan - chest: report reviewed, image reviewed Assessment and Plan Assessment: Likely covid 19 pneumonia, results are pending Mild intermittent asthma stable QT prolongation patient on telemetry GERD IBS Bipolar disorder Plan: Continue supportive care continue antibiotics monitor QT interval on telemetry closely on therapy avoid his steroids and inhaled as well as intravenous awaiting results or viral panel Time with Patient: Greater than 30
[2019-08-03 13:39] VITALS: PULSE 103
[2019-08-04] MEDS ORDERED: PANTOPRAZOLE 40 MG TABLET PO SCH (07:30)
[2019-08-04] MEDS ORDERED: ENOXAPARIN 40 MG/0.4 ML SYRINGE SQ SCH (09:00)
== END 2019-08-03 14:02 | disposition home or self-care (01) | DRG 177 ==
LOC: EC 22:27 → 4SSUR 08-03 01:44 → OBSVTOIN 08-03 08:39
PROVIDERS: ADMIT Family Medicine; ATTEND Family Medicine
DX: U07.1 COVID-19 (principal); J12.89 Other viral pneumonia; N39.0 Urinary tract infection, site not specified; E86.0 Dehydration; F31.9 Bipolar disorder, unspecified; J45.20 Mild intermittent asthma, uncomplicated; K21.9 Gastro-esophageal reflux disease without esophagitis; K58.9 Irritable bowel syndrome, unspecified; R94.31 Abnormal electrocardiogram [ECG] [EKG]; E66.9 Obesity, unspecified; Z68.38 Body mass index [BMI] 38.0-38.9, adult; Z79.899 Other long term (current) drug therapy; R11.2 Nausea with vomiting, unspecified; R19.7 Diarrhea, unspecified; R79.89 Other specified abnormal findings of blood chemistry; Z88.8 Allergy status to other drugs, medicaments and biological substances; Z91.018 Allergy to other foods; Z91.010 Allergy to peanuts; Z82.5 Family history of asthma and other chronic lower respiratory diseases; Z83.3 Family history of diabetes mellitus
CPT/HCPCS: 36415; 71045; 71275; 80053; 81001; 81025; 82728; 83605; 83615; 83735; 84145; 85025; 85379; 85610; 85730; 86140; 87040; 87502; 87635; 93005; 96361; 96374; 96376; 99285

== ENCOUNTER → 2020-12-01 | Outpatient (CLI) | payer OTHER ==
--- NOTE | 2020-12-01 19:30 | MR ---
EXAMINATION TYPE: MR ankle LT wo con DATE OF EXAM: 12/01/2020 COMPARISON: None HISTORY: Left Ankle /Foot pain. Pain in Top of foot by ankle joint, goes into the joint. Cracking shasta nds now. The Achilles tendon is intact. Plantar fascia appears intact. There is some mild calcaneal spurring. The medial and lateral flexor tendons of the ankle appear intact. There is subcutaneous edema around the posterior ankle. The ankle mortise is anatomic. I see no fracture. The collateral ligaments appea r intact. I see no bony destructive process. Tarsal bones are intact. Subtalar joint appears intact. There is small ankle joint effusion. IMPRESSION: Subcutaneous edema mainly around the medial posterior ankle. No ligamentous or tendon tear. There is mild ankle joint effusion consistent with some synovitis. No fracture seen. Mild calcaneal spurring.
== END | disposition home or self-care (01) ==
LOC: RADMRIMAIN 11:35
PROVIDERS: ATTEND Podiatrist Foot & Ankle Surgery
DX: S96.19 Other specified injury of muscle and tendon of long extensor muscle of toe at ankle and foot level (principal); X58.XXXA Exposure to other specified factors, initial encounter

== ENCOUNTER 2023-03-01 09:12 | Emergency (ER) | payer OTHER ==
[2023-03-01] MEDS ORDERED: KETOROLAC 15 MG/ML 1 ML VIAL IVP STA ×2 (09:27→12:11)
[2023-03-01] MEDS ORDERED: ONDANSETRON 4 MG/2 ML VIAL IVP STA (09:27)
[2023-03-01] MEDS ORDERED: SODIUM CHLORIDE 0.9% 2,000 ML IV STA (09:27)
[2023-03-01] MEDS ORDERED: HYDROmorphone 0.5 MG/0.5 ML SYRINGE IVP STA ×2 (09:28→10:29)
--- NOTE | 2023-03-01 09:31 | ED ---
Abdominal Pain HPI - General Chief Complaint: Abdominal Pain Stated Complaint: abd pain Time Seen by Provider: 03/01/23 09:23 Source: patient, RN notes reviewed Mode of arrival: ambulatory Limitations: no limitations - History of Present Illness Initial Comments: 28-year-old female presents emergency Department with chief complaint of left- sided abdominal pain left flank pain. Patient states is a sudden onset around midnight. She states nothing makes it feel better felt worse she has meant to nausea vomiting no prior abdominal surgeries denies any chance she has no urinary symptoms no reported fever no chest pain. - Related Data Home Medications Medication Instructions Recorded Confirmed Albuterol Inhaler [Ventolin Hfa 1 puff INHALATION RT-Q4H PRN 08/01/19 08/03/19 Inhaler] Previous Rx's Medication Instructions Recorded Cephalexin [Keflex] 500 mg PO Q6HR 14 Days #56 cap 08/01/19 Ondansetron [Zofran ODT] 4 mg PO Q8HR PRN #15 tab 08/01/19 HYDROcodone/APAP 7.5-325MG [[place] 1 tab PO Q6HR PRN 3 Days #12 tab 03/01/23 7.5-325] Ketorolac [Toradol] 10 mg PO Q8HR #15 tab 03/01/23 Ondansetron Odt [Zofran Odt] 4 mg PO Q8HR PRN #10 tab 03/01/23 Allergies Allergy/AdvReac Type Severity Reaction Status Date / Time peanut Allergy Anaphylaxis Verified 03/01/23 09:18 tree nut Allergy Anaphylaxis Verified 03/01/23 09:18 sertraline [From Zoloft] AdvReac HEARTBURN Verified 03/01/23 09:18 Review of Systems ROS Statement: Those systems with pertinent positive or pertinent negative responses have been documented in the HPI. ROS Other: All systems not noted in ROS Statement are negative. Past Medical History Past Medical History: Asthma, GERD/Reflux Additional Past Medical History / Comment(s): NAUSEA/VOMITING, costocondritis, ibs History of Any Multi-Drug Resistant Organisms: None Reported Past Surgical History: No Surgical Hx Reported Past Anesthesia/Blood Transfusion Reactions: No Reported Reaction Past Psychological History: Bipolar Smoking Status: Never smoker Past Alcohol Use History: None Reported Past Drug Use History: None Reported - Past Family History Mother Family Medical History: No Reported History Additional Family Medical History / Comment(s): Mother is alive with no major medical problems. Father Additional Family Medical History / Comment(s): Father is alive with history of diabetes. Brother(s) Additional Family Medical History / Comment(s): Patient has 1 brother with asthma. Patient's 1 sister with no major medical problems. Patient does not have any children. General Exam Limitations: no limitations General appearance: alert, in no apparent distress Head exam: Present: atraumatic, normocephalic, normal inspection Eye exam: Present: normal appearance, PERRL, EOMI. Absent: scleral icterus, conjunctival injection, periorbital swelling ENT exam: Present: normal exam, mucous membranes moist Neck exam: Present: normal inspection, full ROM. Absent: tenderness, meningismus, lymphadenopathy Respiratory exam: Present: normal lung sounds bilaterally. Absent: respiratory distress, wheezes, rales, rhonchi, stridor Cardiovascular Exam: Present: normal rhythm, tachycardia, normal heart sounds. Absent: systolic murmur, diastolic murmur, rubs, gallop, clicks GI/Abdominal exam: Present: soft, tenderness (Minimal tenderness over the left side where patient reports pain), normal bowel sounds. Absent: distended, guarding, rebound, rigid Back exam: Absent: CVA tenderness (R), CVA tenderness (L) Neurological exam: Present: alert Course Vital Signs 03/01/23 03/01/23 03/01/23 09:15 10:33 12:49 Temperature 98.2 F 98.2 F Pulse Rate 109 H 76 83 Respiratory 20 18 18 Rate Blood Pressure 136/86 106/60 91/58 O2 Sat by Pulse 99 99 96 Oximetry Medical Decision Making - Medical Decision Making Was pt. sent in by a medical professional or institution (, PA, BAG INSPECTOR, urgent care, hospital, or fpc...) When possible be specific @ -No Did you speak to anyone other than the patient for history (EMS, parent, family, police, friend...)? What history was obtained from this source @ -No Did you review nursing and triage notes (agree or disagree)? Why? @ -I reviewed and agree with nursing and triage notes Were old charts reviewed (outside hosp., previous admission, EMS record, old EKG , old radiological studies, urgent care reports/EKG's, fpc records)? Report findings @ -No old charts were reviewed Differential Diagnosis (chest pain, altered mental status, abdominal pain women, abdominal pain men, vaginal bleeding, weakness, fever, dyspnea, syncope, headache, dizziness, GI bleed, back pain, seizure, CVA, palpatations, mental health, musculoskeletal)? @ -Differential Abdominal Pain Women: Appendicitis, Cholecystitis, diverticulosis, ischemic bowel, pancreatitis, hepatitis, UTI, gastroenteritis, AAA, incarcerated hernia, bowel obstruction, constipation, inflammatory bowel, hepatitis, peptic ulcer disease, splenic infarction, perforated viscus, vulvitis, ovarian torsion, PID, kidney stone, placenta abruption, this is not meant to be an all-inclusive list EKG interpreted by me (3pts min.). @ -None X-rays interpreted by me (1pt min.). @ -None done CT interpreted by me (1pt min.). @ -CT abdomen pelvis shows left ureteral calculus U/S interpreted by me (1pt. min.). @ -None done What testing was considered but not performed or refused? (CT, X-rays, U/S, labs)? Why? @ -None What meds were considered but not given or refused? Why? @ -None Did you discuss the management of the patient with other professionals (professionals i.e. , PA, BAG INSPECTOR, lab, RT, psych nurse, social scientist, machine assembler supervisor, teacher, customs officer, case management assistant)? Give summary @ -No Was smoking cessation discussed for >3mins.? @ -No Was critical care preformed (if so, how long)? @ -No Were there social determinants of health that impacted care today? How? (Homelessness, low income, unemployed, alcoholism, drug addiction, transportation, low edu. Level, literacy, decrease access to med. care, retirement, rehab)? @ -No Was there de-escalation of care discussed even if they declined (Discuss DNR or withdrawal of care, Hospice)? DNR status @ -No What co-morbidities impacted this encounter? (DM, HTN, Smoking, COPD, CAD, Cancer, CVA, ARF, Chemo, Hep., AIDS, mental health diagnosis, sleep apnea, morbid obesity)? @ -None Was patient admitted / discharged? Hospital course, mention meds given and route, prescriptions, significant lab abnormalities, going to OR and other pertinent info. @ -Discharge patient has a left renal calculi patient's pain is improved patient is discharged in stable condition return parameters were discussed. Undiagnosed new problem with uncertain prognosis? @ -No Drug Therapy requiring intensive monitoring for toxicity (Heparin, Nitro, Insulin, Cardizem)? @ -No Were any procedures done? @ -No Diagnosis/symptom? @ -Left renal calculi Acute, or Chronic, or Acute on Chronic? @ -Acute Uncomplicated (without systemic symptoms) or Complicated (systemic symptoms)? @ -Uncomplicated Side effects of treatment? @ -No Exacerbation, Progression, or Severe Exacerbation? @ -No Poses a threat to life or bodily function? How? (Chest pain, [place], [place], pneumonia, PE, COPD, DKA, ARF, appy, cholecystitis, CVA, Diverticulitis, Homicidal, Suicidal, threat to staff... and all critical care pts) @ -No - Lab Data Result diagrams: 03/01/23 09:36 03/01/23 09:36 Lab Results 03/01/23 03/01/23 03/01/23 Range/Units 09:36 09:36 09:36 WBC 8.1 (3.8-10.6) k/uL RBC 4.43 (3.80-5.40) m/uL Hgb 13.3 (11.4-16.0) gm/dL Hct 39.1 (34.0-46.0) % MCV 88.2 (80.0-100.0) fL MCH 29.9 (25.0-35.0) pg MCHC 33.9 (31.0-37.0) g/dL RDW 13.0 (11.5-15.5) % Plt Count 238 (150-450) k/uL MPV 9.1 Neutrophils % 69 % Lymphocytes % 25 % Monocytes % 4 % Eosinophils % 0 % Basophils % 0 % Neutrophils # 5.6 (1.3-7.7) k/uL Lymphocytes # 2.1 (1.0-4.8) k/uL Monocytes # 0.3 (0-1.0) k/uL Eosinophils # 0.0 (0-0.7) k/uL Basophils # 0.0 (0-0.2) k/uL Sodium (137-145) mmol/L Potassium (3.5-5.1) mmol/L Chloride (98-107) mmol/L Carbon Dioxide (22-30) mmol/L Anion Gap mmol/L BUN (7-17) mg/dL Creatinine (0.52-1.04) mg/dL Est GFR (CKD-EPI)AfAm (>60 ml/min/1.73 sqM) Est GFR (CKD-EPI)NonAf (>60 ml/min/1.73 sqM) Glucose (74-99) mg/dL Calcium (8.4-10.2) mg/dL Total Bilirubin (0.2-1.3) mg/dL AST (14-36) U/L ALT (4-34) U/L Alkaline Phosphatase (38-126) U/L Total Protein (6.3-8.2) g/dL Albumin (3.5-5.0) g/dL Lipase (23-300) U/L Urine Color Light Red Urine Appearance Cloudy H (Clear) Urine pH 6.5 (5.0-8.0) Ur Specific [place] 1.022 (1.001-1.035) Urine Protein 1+ H (Negative) Urine Glucose (UA) Negative (Negative) Urine Ketones Trace H (Negative) Urine Blood Large H (Negative) Urine Nitrite Negative (Negative) Urine Bilirubin Negative (Negative) Urine Urobilinogen <2.0 (<2.0) mg/dL Ur Leukocyte Esterase Negative (Negative) Urine RBC >182 H (0-5) /hpf Ur Squamous Epith Cells 9 H (0-4) /hpf Urine Bacteria Occasional H (None) /hpf Urine Mucus Few H (None) /hpf Urine HCG, Qual Not Detected (Not Detectd) 03/01/23 Range/Units 09:36 WBC (3.8-10.6) k/uL RBC (3.80-5.40) m/uL Hgb (11.4-16.0) gm/dL Hct (34.0-46.0) % MCV (80.0-100.0) fL MCH (25.0-35.0) pg MCHC (31.0-37.0) g/dL RDW (11.5-15.5) % Plt Count (150-450) k/uL MPV Neutrophils % % Lymphocytes % % Monocytes % % Eosinophils % % Basophils % % Neutrophils # (1.3-7.7) k/uL Lymphocytes # (1.0-4.8) k/uL Monocytes # (0-1.0) k/uL Eosinophils # (0-0.7) k/uL Basophils # (0-0.2) k/uL Sodium 139 (137-145) mmol/L Potassium 4.0 (3.5-5.1) mmol/L Chloride 106 (98-107) mmol/L Carbon Dioxide 22 (22-30) mmol/L Anion Gap 11 mmol/L BUN 9 (7-17) mg/dL Creatinine 0.80 (0.52-1.04) mg/dL Est GFR (CKD-EPI)AfAm >90 (>60 ml/min/1.73 sqM) Est GFR (CKD-EPI)NonAf >90 (>60 ml/min/1.73 sqM) Glucose 126 H (74-99) mg/dL Calcium 9.4 (8.4-10.2) mg/dL Total Bilirubin 0.6 (0.2-1.3) mg/dL AST 21 (14-36) U/L ALT 18 (4-34) U/L Alkaline Phosphatase 61 (38-126) U/L Total Protein 7.0 (6.3-8.2) g/dL Albumin 4.2 (3.5-5.0) g/dL Lipase 60 (23-300) U/L Urine Color Urine Appearance (Clear) Urine pH (5.0-8.0) Ur Specific [place] (1.001-1.035) Urine Protein (Negative) Urine Glucose (UA) (Negative) Urine Ketones (Negative) Urine Blood (Negative) Urine Nitrite (Negative) Urine Bilirubin (Negative) Urine Urobilinogen (<2.0) mg/dL Ur Leukocyte Esterase (Negative) Urine RBC (0-5) /hpf Ur Squamous Epith Cells (0-4) /hpf Urine Bacteria (None) /hpf Urine Mucus (None) /hpf Urine HCG, Qual (Not Detectd) Disposition Clinical Impression: Left ureteral calculus Disposition: HOME SELF-CARE Condition: Stable Instructions (If sedation given, give patient instructions): Kidney Stones (ED) Additional Instructions: Please return to the Emergency Department if symptoms worsen or any other concerns. Prescriptions: HYDROcodone/APAP 7.5-325MG [[place] 7.5-325] 1 tab PO Q6HR PRN 3 Days #12 tab PRN Reason: Pain Ketorolac [Toradol] 10 mg PO Q8HR #15 tab Ondansetron Odt [Zofran Odt] 4 mg PO Q8HR PRN #10 tab PRN Reason: Nausea Is patient prescribed a controlled substance at d/c from ED?: No Referrals: Jacky Muniz DO [REFERRING] - 1-2 days Time of Disposition: 12:14
[2023-03-01 09:36] VITALS: TEMP 98.2
[2023-03-01 10:42] VITALS: RESP 18
[2023-03-01 10:48] LABS: Basophils % (A) 0 %; Eosinophils % (A) 0 %; HCT 39.1 % (34.0-46.0); HGB 13.3 gm/dL (11.4-16.0); Lymphocytes # (A) 2.1 k/uL (1.0-4.8); Lymphocytes % (A) 25 %; MCH 29.9 pg (25.0-35.0); MCHC 33.9 g/dL (31.0-37.0); MCV 88.2 fL (80.0-100.0); Mean Platelet Volume 9.1; Monocytes # (A) 0.3 k/uL (0-1.0); Monocytes % (A) 4 %; Neutrophils # (A) 5.6 k/uL (1.3-7.7); Neutrophils % (A) 69 %; Platelet Count 238 k/uL (150-450); RBC 4.43 m/uL (3.80-5.40); WBC 8.1 k/uL (3.8-10.6)
[2023-03-01 11:06] LABS: Appearance,Urine Cloudy (Clear); Bacteria,Urine Occasional /hpf; Bilirubin,Urine Negative (Negative); Blood,Urine Large (Negative); Color,Urine Light Red; Glucose,Urine (UA) Negative (Negative); Ketones,Urine Trace (Negative); Leukocyte Esterase,Urine Negative (Negative); Mucus,Urine Few /hpf; Nitrite,Urine Negative (Negative); PH, Urine 6.5 (5.0-8.0); Protein,Urine 1+ (Negative); RBC,Urine >182 /hpf (0-5); Specific Gravity,Urine 1.022 (1.001-1.035); Squamous Epithelial Cell,Urine 9 /hpf (0-4); Urobilinogen,Urine <2.0 mg/dL (<2.0)
[2023-03-01 11:20] LABS: ALT 18 U/L (4-34); AST 21 U/L (14-36); African American GFR (CKD) >90 (>60 ml/min/1.73 sqM); Albumin 4.2 g/dL (3.5-5.0); Alkaline Phosphatase 61 U/L (38-126); Anion Gap 11 mmol/L; Blood Urea Nitrogen 9 mg/dL (7-17); Calcium 9.4 mg/dL (8.4-10.2); Carbon Dioxide 22 mmol/L (22-30); Chloride 106 mmol/L (98-107); Glucose 126 mg/dL (74-99); Lipase 60 U/L (23-300); Non-African American GFR(CKD) >90 (>60 ml/min/1.73 sqM); Sodium 139 mmol/L (137-145); Total Bilirubin 0.6 mg/dL (0.2-1.3)
--- NOTE | 2023-03-01 11:37 | CT ---
EXAMINATION TYPE: CT abdomen pelvis wo con CT DLP: 1416.3 mGycm, Automated exposure control for dose reduction was used. DATE OF EXAM: 03/01/2023 11:26 AM COMPARISON: CT abdomen pelvis most recent from 08/02/2019 CT chest CLINICAL INDICATION:Female, 28 years old with history of left flank pain; LEFT FLANK PAIN TECHNIQUE: Axial CT of the ;CT abdomen pelvis wo con;Sagittal and coronal reformats were created on a separate workstation. Contrast used: mL of , (none if empty) Oral contrast used: without Oral Contrast (none if empty) FINDINGS: LOWER CHEST: Unremarkable ABDOMEN LIVER: Unremarkable GALLBLADDER AND BILE DUCTS: Unremarkable. PANCREAS: Unremarkable. SPLEEN: Unremarkable. ADRENAL GLANDS: Unremarkable. KIDNEYS AND URETERS: Mild left hydroureteronephrosis secondary obstructing 4 mm at the ureterovesicul ar junction. No additional renal calculi. No right hydronephrosis. PELVIS BLADDER: Incompletely distended but grossly unremarkable. REPRODUCTIVE: Unremarkable. ABDOMEN & PELVIS STOMACH AND BOWEL: No evidence of bowel obstruction. Scattered colonic diverticula. The appendix is n ormal. PERITONEUM/RETROPERITONEUM: No evidence of pneumoperitoneum or free fluid. VASCULATURE: No evidence of aortic aneurysm. MUSCULOSKELETAL: No acute osseous abnormalities LYMPH NODES: No gross evidence for lymphadenopathy. SOFT TISSUE/ABDOMINAL WALL: Unremarkable IMPRESSION: Mild left hydroureteronephrosis secondary obstructing 4 mm at the ureterovesicular junction. No addit ional renal calculi.. Scattered colonic diverticulosis.
[2023-03-01 12:55] VITALS: BP 91/58; PULSE 83
== END 2023-03-01 12:52 | disposition home or self-care (01) ==
LOC: EC 09:12 → SUPCPDRO 09:12 → EC 12:52
DX: N13.2 Hydronephrosis with renal and ureteral calculous obstruction (principal); J45.909 Unspecified asthma, uncomplicated; F31.9 Bipolar disorder, unspecified; Z91.010 Allergy to peanuts; Z91.018 Allergy to other foods; Z88.8 Allergy status to other drugs, medicaments and biological substances; Z79.899 Other long term (current) drug therapy
CPT/HCPCS: 99284; 96374; 96375 ×2; 96376 ×2; 96361; 36415; 80053; 83690; 85025; 81001; 81025; 74176; J2405; J1885; J1170

== ENCOUNTER 2023-03-01 21:32 | Inpatient (IN) | payer OTHER ==
[2023-03-01] MEDS ORDERED: HYDROmorphone 1 MG/ML 1 ML SYRINGE IVP STA (22:38)
[2023-03-01] MEDS ORDERED: SODIUM CHLORIDE 0.9% 2,000 ML IV STA (22:38)
[2023-03-01] MEDS ORDERED: ONDANSETRON 4 MG/2 ML VIAL IVP STA (22:39)
[2023-03-01] MEDS ORDERED: TAMSULOSIN 0.4 MG CAP.ER.24H PO STA (22:39)
[2023-03-01 23:22] LABS: Basophils % (A) 0 %; Eosinophils % (A) 0 %; HCT 37.3 % (34.0-46.0); HGB 12.5 gm/dL (11.4-16.0); Lymphocytes % (A) 21 %; MCH 29.4 pg (25.0-35.0); MCHC 33.5 g/dL (31.0-37.0); MCV 87.9 fL (80.0-100.0); Mean Platelet Volume 9.1; Monocytes # (A) 0.5 k/uL (0-1.0); Monocytes % (A) 5 %; Neutrophils # (A) 6.9 k/uL (1.3-7.7); Neutrophils % (A) 73 %; Platelet Count 210 k/uL (150-450); RBC 4.25 m/uL (3.80-5.40); WBC 9.4 k/uL (3.8-10.6)
[2023-03-01 23:38] LABS: ALT 15 U/L (4-34); AST 20 U/L (14-36); African American GFR (CKD) >90 (>60 ml/min/1.73 sqM); Albumin 3.9 g/dL (3.5-5.0); Alkaline Phosphatase 56 U/L (38-126); Anion Gap 12 mmol/L; Blood Urea Nitrogen 11 mg/dL (7-17); Carbon Dioxide 20 mmol/L (22-30); Chloride 106 mmol/L (98-107); Glucose 108 mg/dL (74-99); Non-African American GFR(CKD) >90 (>60 ml/min/1.73 sqM); Sodium 138 mmol/L (137-145); Total Bilirubin 0.7 mg/dL (0.2-1.3); Total Protein 6.6 g/dL (6.3-8.2)
--- NOTE | 2023-03-02 00:38 | ED ---
Abdominal Pain HPI - General Chief Complaint: Abdominal Pain Stated Complaint: abd pain Time Seen by Provider: 03/01/23 22:04 Source: family Mode of arrival: wheelchair Limitations: no limitations - History of Present Illness Initial Comments: 28-year-old female who presents to the emergency department reporting left flank pain. She was seen in the emergency room earlier today for same complaint. Diagnosed with a 4 mm left ureterovesicular junction stone. Patient was discharged home with prescriptions for Toradol, Erin and Zofran. She tried to take his medications at home however cannot hold them down due to vomiting. States that her pain is 10 out of 10. Reports that the pain migrated more South. This is her first stone. She denies any vaginal bleeding or discharge. No concern for . She has only. Once and she has been home. Been unable to hold down any food or drink. No diarrhea, constipation, black or bloody stools. No other alleviating, precipitating or modifying factors - Related Data Home Medications Medication Instructions Recorded Confirmed Albuterol Inhaler [Ventolin Hfa 1 puff INHALATION RT-Q4H PRN 08/01/19 08/03/19 Inhaler] Previous Rx's Medication Instructions Recorded Cephalexin [Keflex] 500 mg PO Q6HR 14 Days #56 cap 08/01/19 Ondansetron [Zofran ODT] 4 mg PO Q8HR PRN #15 tab 08/01/19 HYDROcodone/APAP 7.5-325MG [[place] 1 tab PO Q6HR PRN 3 Days #12 tab 03/01/23 7.5-325] Ketorolac [Toradol] 10 mg PO Q8HR #15 tab 03/01/23 Ondansetron Odt [Zofran Odt] 4 mg PO Q8HR PRN #10 tab 03/01/23 Allergies Allergy/AdvReac Type Severity Reaction Status Date / Time peanut Allergy Anaphylaxis Verified 03/01/23 22:03 tree nut Allergy Anaphylaxis Verified 03/01/23 22:03 sertraline [From Zoloft] AdvReac HEARTBURN Verified 03/01/23 22:03 Review of Systems ROS Statement: Those systems with pertinent positive or pertinent negative responses have been documented in the HPI. ROS Other: All systems not noted in ROS Statement are negative. Past Medical History Past Medical History: Asthma, GERD/Reflux Additional Past Medical History / Comment(s): NAUSEA/VOMITING, costocondritis, ibs History of Any Multi-Drug Resistant Organisms: None Reported Past Surgical History: No Surgical Hx Reported Past Anesthesia/Blood Transfusion Reactions: No Reported Reaction Past Psychological History: Bipolar Smoking Status: Never smoker Past Alcohol Use History: None Reported Past Drug Use History: None Reported - Past Family History Mother Family Medical History: No Reported History Additional Family Medical History / Comment(s): Mother is alive with no major medical problems. Father Additional Family Medical History / Comment(s): Father is alive with history of diabetes. Brother(s) Additional Family Medical History / Comment(s): Patient has 1 brother with asthma. Patient's 1 sister with no major medical problems. Patient does not have any children. General Exam Limitations: no limitations General appearance: alert, in distress Head exam: Present: atraumatic, normocephalic, normal inspection Eye exam: Present: normal appearance, PERRL, EOMI. Absent: scleral icterus, conjunctival injection, periorbital swelling ENT exam: Present: normal exam, mucous membranes moist Neck exam: Present: normal inspection. Absent: tenderness, meningismus, lymphadenopathy Respiratory exam: Present: normal lung sounds bilaterally. Absent: respiratory distress, wheezes, rales, rhonchi, stridor Cardiovascular Exam: Present: regular rate, normal rhythm, normal heart sounds. Absent: systolic murmur, diastolic murmur, rubs, gallop, clicks GI/Abdominal exam: Present: soft, tenderness (Left lower quadrant), normal bowel sounds. Absent: distended, guarding, rebound, rigid Extremities exam: Present: normal inspection, full ROM, normal capillary refill. Absent: tenderness, pedal edema, joint swelling, calf tenderness Back exam: Present: normal inspection Neurological exam: Present: alert, oriented X3, CN II-XII intact Psychiatric exam: Present: normal affect, normal mood Skin exam: Present: warm, dry, intact, normal color. Absent: rash Course Vital Signs 03/01/23 03/01/23 03/02/23 22:00 23:03 02:00 Temperature 98.1 F 98.0 F Pulse Rate 85 75 75 Respiratory 18 20 16 Rate Blood Pressure 111/72 108/68 101/69 O2 Sat by Pulse 95 98 96 Oximetry Medical Decision Making - Medical Decision Making Was pt. sent in by a medical professional or institution (JONY Michele, GLASS RIBBON MACHINE OPERATOR ASSISTANT, urgent care, hospital, or fdc...) When possible be specific @ -No Did you speak to anyone other than the patient for history (EMS, parent, family, police, friend...)? What history was obtained from this source @ -Spoke with the patient's mother Did you review nursing and triage notes (agree or disagree)? Why? @ -I reviewed and agree with nursing and triage notes Were old charts reviewed (outside hosp., previous admission, EMS record, old EKG, old radiological studies, urgent care reports/EKG's, fdc records)? Report findings @ -I reviewed the patient's CT from earlier today Differential Diagnosis (chest pain, altered mental status, abdominal pain women, abdominal pain men, vaginal bleeding, weakness, fever, dyspnea, syncope, headache, dizziness, GI bleed, back pain, seizure, CVA, palpatations, mental health, musculoskeletal)? @ -Differential Abdominal Pain Women: Appendicitis, Cholecystitis, diverticulosis, ischemic bowel, pancreatitis, hepatitis, UTI, gastroenteritis, AAA, incarcerated hernia, bowel obstruction, constipation, inflammatory bowel, hepatitis, peptic ulcer disease, splenic infarction, perforated viscus, vulvitis, ovarian torsion, PID, kidney stone, placenta abruption, this is not meant to be an all-inclusive list EKG interpreted by me (3pts min.). @ -Not done X-rays interpreted by me (1pt min.). @ -Demonstrates no acute process CT interpreted by me (1pt min.). @ -None done U/S interpreted by me (1pt. min.). @ -None done What testing was considered but not performed or refused? (CT, X-rays, U/S, labs)? Why? @ -None What meds were considered but not given or refused? Why? @ -None Did you discuss the management of the patient with other professionals (professionals i.e. JONY Michele, GLASS RIBBON MACHINE OPERATOR ASSISTANT, lab, RT, psych nurse, social studies teacher, machine ii coremaker, teacher, juvenile probation officer, pillowcase cleaner)? Give summary @ -Spoke with Dr. menard who agreed to admit the patient Was smoking cessation discussed for >3mins.? @ -No Was critical care preformed (if so, how long)? @ -No Were there social determinants of health that impacted care today? How? (Homelessness, low income, unemployed, alcoholism, drug addiction, transportation, low edu. Level, literacy, decrease access to med. care, intermediate, rehab)? @ -No Was there de-escalation of care discussed even if they declined (Discuss DNR or withdrawal of care, Hospice)? DNR status @ -No What co-morbidities impacted this encounter? (DM, HTN, Smoking, COPD, CAD, Cancer, CVA, ARF, Chemo, Hep., AIDS, mental health diagnosis, sleep apnea, morbid obesity)? @ -None Was patient admitted / discharged? Hospital course, mention meds given and route, prescriptions, significant lab abnormalities, going to OR and other pertinent info. @ -Upon arrival patient was placed into room 4. Thorough history and physical exam was performed. Patient was given Dilaudid and Zofran. She is given IV fluids. I did review the patient's CT. Her pain is controlled at this time. I did call and speak with Dr. Menard and discussed failed outpatient management. He was agreeable to watching the patient until the morning. Patient is made no thing by mouth. Taken 4 stable condition Undiagnosed new problem with uncertain prognosis? @ -No Drug Therapy requiring intensive monitoring for toxicity (Heparin, Nitro, Insulin, Cardizem)? @ -No Were any procedures done? @ -No Diagnosis/symptom? @ -Acute left flank pain, acute ureterolithiasis with hydro- Acute, or Chronic, or Acute on Chronic? @ -Acute Uncomplicated (without systemic symptoms) or Complicated (systemic symptoms)? @ -complicated Side effects of treatment? @ -No Exacerbation, Progression, or Severe Exacerbation? @ -No Poses a threat to life or bodily function? How? (Chest pain, [place], [place], pneumonia, PE, COPD, DKA, ARF, appy, cholecystitis, CVA, Diverticulitis, Homicidal, Suicidal, threat to staff... and all critical care pts) @ -No - Lab Data Result diagrams: 03/01/23 22:58 03/01/23 23:02 Lab Results 03/01/23 03/01/23 Range/Units 22:58 23:02 WBC 9.4 (3.8-10.6) k/uL RBC 4.25 (3.80-5.40) m/uL Hgb 12.5 (11.4-16.0) gm/dL Hct 37.3 (34.0-46.0) % MCV 87.9 (80.0-100.0) fL MCH 29.4 (25.0-35.0) pg MCHC 33.5 (31.0-37.0) g/dL RDW 13.0 (11.5-15.5) % Plt Count 210 (150-450) k/uL MPV 9.1 Neutrophils % 73 % Lymphocytes % 21 % Monocytes % 5 % Eosinophils % 0 % Basophils % 0 % Neutrophils # 6.9 (1.3-7.7) k/uL Lymphocytes # 2.0 (1.0-4.8) k/uL Monocytes # 0.5 (0-1.0) k/uL Eosinophils # 0.0 (0-0.7) k/uL Basophils # 0.0 (0-0.2) k/uL Sodium 138 (137-145) mmol/L Potassium 4.0 (3.5-5.1) mmol/L Chloride 106 (98-107) mmol/L Carbon Dioxide 20 L (22-30) mmol/L Anion Gap 12 mmol/L BUN 11 (7-17) mg/dL Creatinine 0.77 (0.52-1.04) mg/dL Est GFR (CKD-EPI)AfAm >90 (>60 ml/min/1.73 sqM) Est GFR (CKD-EPI)NonAf >90 (>60 ml/min/1.73 sqM) Glucose 108 H (74-99) mg/dL Calcium 9.0 (8.4-10.2) mg/dL Total Bilirubin 0.7 (0.2-1.3) mg/dL AST 20 (14-36) U/L ALT 15 (4-34) U/L Alkaline Phosphatase 56 (38-126) U/L Total Protein 6.6 (6.3-8.2) g/dL Albumin 3.9 (3.5-5.0) g/dL Disposition Clinical Impression: Left ureteral calculus, Nausea & vomiting Disposition: ADMITTED IP TO [facility] Condition: Stable Is patient prescribed a controlled substance at d/c from ED?: No Time of Disposition: 00:36 Decision to Admit Reason: Admit from EC Decision Date: 03/02/23 Decision Time: 00:36
[2023-03-02] MEDS ORDERED: ONDANSETRON 4 MG/2 ML VIAL IVP PRN (00:44)
[2023-03-02] MEDS ORDERED: NALOXONE 0.4 MG/ML 1 ML VIAL IV PRN (00:44)
--- NOTE | 2023-03-02 01:49 | XR ---
EXAM: XR Abdomen, 1 View CLINICAL HISTORY: ITS.REASON XR Reason: abdominal pain TECHNIQUE: Frontal supine view of the abdomen/pelvis. COMPARISON: No relevant prior studies available. FINDINGS: Gastrointestinal tract: Unremarkable. No dilation. Bones/joints: Unremarkable. IMPRESSION: Normal abdominal x-ray.
[2023-03-02] MEDS: SODIUM CHLORIDE 0.9% 1,000 ML IV SCH ×3 (01:57→16:41)
[2023-03-02] MEDS: HYDROmorphone 1 MG/ML 1 ML SYRINGE IVP PRN ×4 (05:12→16:41)
[2023-03-02] MEDS: KETOROLAC 15 MG/ML 1 ML VIAL IVP PRN (12:01)
[2023-03-02] MEDS ORDERED: HYDROmorphone 1 MG/ML 1 ML SYRINGE IM PRN (13:34)
[2023-03-02] MEDS ORDERED: HYDROmorphone 1 MG/ML 1 ML SYRINGE IVP STA (13:36)
[2023-03-02] MEDS: ONDANSETRON 4 MG/2 ML VIAL IVP PRN (13:53)
--- NOTE | 2023-03-02 18:46 | P.GSHP ---
History of Present Illness H&P Date: 03/02/23 Chief Complaint: Left renal colic The patient is a 28-year-old white female with no prior history of urolithiasis. She was awakened the night of 02/28/2023 with acute left flank and left-sided abdominal pain. She presented to the ER and was found to have mild left hydronephrosis due to a 4 mm left UVJ calculus. She was discharged home on oral medications but returned last night with intractable symptoms. She was subsequently admitted. - Constitutional Constitutional: Denies chills, Denies fever - Gastrointestinal Gastrointestinal: Reports nausea, Reports vomiting - Genitourinary (Female) Genitourinary: Reports flank pain, Reports kidney stones, Denies dysuria, Denies hematuria Past Medical History Past Medical History: Asthma, GERD/Reflux Additional Past Medical History / Comment(s): NAUSEA/VOMITING, costocondritis, ibs History of Any Multi-Drug Resistant Organisms: None Reported Past Surgical History: No Surgical Hx Reported Past Anesthesia/Blood Transfusion Reactions: No Reported Reaction Past Psychological History: Bipolar Smoking Status: Never smoker Past Alcohol Use History: None Reported Past Drug Use History: None Reported - Past Family History Mother Family Medical History: No Reported History Additional Family Medical History / Comment(s): Mother is alive with no major medical problems. Father Additional Family Medical History / Comment(s): Father is alive with history of diabetes. Brother(s) Additional Family Medical History / Comment(s): Patient has 1 brother with asthma. Patient's 1 sister with no major medical problems. Patient does not have any children. Medications and Allergies Home Medications Medication Instructions Recorded Confirmed Type HYDROcodone/APAP 7.5-325MG [[place] 1 tab PO Q6HR PRN 3 Days #12 tab 03/01/23 03/02/23 Rx 7.5-325] Ketorolac [Toradol] 10 mg PO Q8HR #15 tab 03/01/23 03/02/23 Rx Ondansetron Odt [Zofran Odt] 4 mg PO Q8HR PRN #10 tab 03/01/23 03/02/23 Rx Allergies Allergy/AdvReac Type Severity Reaction Status Date / Time peanut Allergy Anaphylaxis Verified 03/02/23 09:20 tree nut Allergy Anaphylaxis Verified 03/02/23 09:20 sertraline [From Zoloft] AdvReac HEARTBURN Verified 03/02/23 09:20 Surgical - Exam Vital Signs Temp Pulse Resp BP Pulse Ox 98.1 F 85 18 111/72 95 03/01/23 22:00 03/01/23 22:00 03/01/23 22:00 03/01/23 22:00 03/01/23 22:00 - General well developed, well nourished, moderate distress - Neck no masses, trachea midline - Respiratory normal respiratory effort - Abdomen Soft, non-tender, non-distended, no mass. Mild left CVA tenderness. - Psychiatric oriented to time, oriented to person, oriented to place, speech is normal, memory intact Results - Labs 03/01/23 22:58 03/01/23 23:02 Abnormal Lab Results - Last 24 Hours (Table) 03/01/23 Range/Units 23:02 Carbon Dioxide 20 L (22-30) mmol/L Glucose 108 H (74-99) mg/dL Diabetes panel 03/01/23 Range/Units 23:02 Sodium 138 (137-145) mmol/L Potassium 4.0 (3.5-5.1) mmol/L Chloride 106 (98-107) mmol/L Carbon Dioxide 20 L (22-30) mmol/L BUN 11 (7-17) mg/dL Creatinine 0.77 (0.52-1.04) mg/dL Glucose 108 H (74-99) mg/dL Calcium 9.0 (8.4-10.2) mg/dL AST 20 (14-36) U/L ALT 15 (4-34) U/L Alkaline Phosphatase 56 (38-126) U/L Total Protein 6.6 (6.3-8.2) g/dL Albumin 3.9 (3.5-5.0) g/dL Calcium panel 03/01/23 Range/Units 23:02 Calcium 9.0 (8.4-10.2) mg/dL Albumin 3.9 (3.5-5.0) g/dL Pituitary panel 03/01/23 Range/Units 23:02 Sodium 138 (137-145) mmol/L Potassium 4.0 (3.5-5.1) mmol/L Chloride 106 (98-107) mmol/L Carbon Dioxide 20 L (22-30) mmol/L BUN 11 (7-17) mg/dL Creatinine 0.77 (0.52-1.04) mg/dL Glucose 108 H (74-99) mg/dL Calcium 9.0 (8.4-10.2) mg/dL Adrenal panel 03/01/23 Range/Units 23:02 Sodium 138 (137-145) mmol/L Potassium 4.0 (3.5-5.1) mmol/L Chloride 106 (98-107) mmol/L Carbon Dioxide 20 L (22-30) mmol/L BUN 11 (7-17) mg/dL Creatinine 0.77 (0.52-1.04) mg/dL Glucose 108 H (74-99) mg/dL Calcium 9.0 (8.4-10.2) mg/dL Total Bilirubin 0.7 (0.2-1.3) mg/dL AST 20 (14-36) U/L ALT 15 (4-34) U/L Alkaline Phosphatase 56 (38-126) U/L Total Protein 6.6 (6.3-8.2) g/dL Albumin 3.9 (3.5-5.0) g/dL - Imaging Abdominal x-ray: report reviewed, image reviewed CT scan - abdomen: report reviewed, image reviewed Assessment and Plan (1) Left ureteral calculus Current Visit: Yes Status: Acute Code(s): N20.1 - CALCULUS OF URETER SNOMED Code(s): 60663714 (2) Hydronephrosis with renal and ureteral calculous obstruction Current Visit: Yes Status: Acute Code(s): N13.2 - HYDRONEPHROSIS WITH RENAL AND URETERAL CALCULOUS OBSTRUCTION SNOMED Code(s): 109705497 Plan: I had a lengthy discussion with the patient regarding her left distal ureteral calculus. I explained to her that the calculus has a high likelihood of passing, but it it is impossible to predict when that might happen. We discussed the pros and cons of medical expulsion therapy (MET) versus ureteroscopic removal of the calculus. After weighing the options, she declines surgery and instead opts to proceed with medical expulsion therapy. She will thus be treated with IV hydration, parenteral analgesics and antibiotics. However, if her symptoms cannot be controlled to the point where she can be managed as an outpatient, she will require ureteroscopic removal of the calcu xenia. She was made aware of potential risks associated with the procedure, including anesthesia and ureteral injury. It was also explained to her that she may require a ureteral stent postoperatively. Time with Patient: Greater than 30
[2023-03-03] MEDS: SODIUM CHLORIDE 0.9% 1,000 ML IV SCH ×4 (00:05→22:08)
[2023-03-03] MEDS: HYDROmorphone 1 MG/ML 1 ML SYRINGE IVP PRN ×6 (01:34→22:49)
[2023-03-03] MEDS: ONDANSETRON 4 MG/2 ML VIAL IVP PRN ×3 (05:46→17:51)
[2023-03-03 08:50] LABS: Basophils # (A) 0.02 X 10*3/uL (0.00-0.10); Basophils % (A) 0.3 %; Eosinophils # (A) 0.09 X 10*3/uL (0.04-0.35); Eosinophils % (A) 1.4 %; HCT 32.3 % (37.2-46.3); HGB 10.3 d/dL (12.0-15.0); Lymphocytes # (A) 2.49 X 10*3/uL (0.90-5.00); Lymphocytes % (A) 37.6 %; MCH 28.7 pg (27.0-32.0); MCHC 31.9 d/dL (32.0-37.0); Mean Platelet Volume 11.5 FL (9.5-12.2); Monocytes # (A) 0.45 X 10*3/uL (0.20-1.00); Monocytes % (A) 6.8 %; NRBC Per 100 WBC 0 X 10*3/uL (0.00-0.01); Neutrophils # (A) 3.57 X 10*3/uL (1.80-7.70); Neutrophils % (A) 53.7 %; Platelet Count 186 X 10*3/uL (140-440); RBC 3.59 X 10*6/uL (4.10-5.20); RDW 13.2 % (11.5-14.5); WBC 6.63 X 10*3/uL (4.50-10.00)
[2023-03-03 08:54] LABS: BUN/Creat Ratio 9.43 Ratio (12.00-20.00); Blood Urea Nitrogen 6.6 mg/dL (9.0-27.0); Calcium 8.4 mg/dL (8.7-10.3); Carbon Dioxide 23.1 mmol/L (21.6-31.8); Chloride 110 mmol/L (96-109); Glucose 91 mg/dL (70-110); Sodium 141 mmol/L (135-145)
--- NOTE | 2023-03-03 09:04 | P.PN ---
Subjective Progress Note Date: 03/03/23 Principal diagnosis: Left ureteral calculus The patient's urine is being strained. She has passed crystals, none of which has been saved. However, the patient's mother does not believe she has passed anything close to 3-4 mm in size. The patient states that she had a rough andie narda and is particularly bothered by persistent nausea. Objective - Vital Signs Vital signs: Vital Signs Temp 98.4 F 03/03/23 01:24 Pulse 91 03/03/23 01:24 Resp 16 03/03/23 01:24 BP 118/69 03/03/23 01:24 Pulse Ox 97 03/03/23 01:24 FiO2 Intake & Output 03/02/23 03/03/23 03/03/23 18:59 06:59 18:59 Intake Total 1080 Output Total 400 600 Balance 680 -600 Intake: Oral 1080 Output: Urine 400 600 Other: # Voids 1 - Constitutional General appearance: Present: average body habitus, mild distress - Psychiatric Psychiatric: Present: A&O x's 3 - Labs CBC & Chem 7: 03/03/23 03:38 03/03/23 03:38 Assessment and Plan (1) Left ureteral calculus Current Visit: Yes Status: Acute Code(s): N20.1 - CALCULUS OF URETER SNOMED Code(s): 56315827 (2) Hydronephrosis with renal and ureteral calculous obstruction Current Visit: Yes Status: Acute Code(s): N13.2 - HYDRONEPHROSIS WITH RENAL AND URETERAL CALCULOUS OBSTRUCTION SNOMED Code(s): 615909344 Plan: I had a lengthy discussion with the patient and her mother regarding her left distal ureteral calculus. Her symptoms have been intractable, and cannot be controlled with oral medications. In view of this, she has elected to undergo ureteroscopic removal of the calculus this afternoon. Potential risks were discussed, which include anesthesia, ureteral injury, and inability to remove the calculus. She is aware of the possible need for a ureteral stent.
[2023-03-03] MEDS ORDERED: LACTATED RINGERS 1,000 ML IV ONE (15:11)
[2023-03-03] MEDS ORDERED: ceFAZolin 3 GM in SODIUM CHLORIDE 0.9% 100 ML IVPB PRN (15:53)
[2023-03-03] MEDS ORDERED: LIDOCAINE 1% INJ 10MG/ML (20 ML MDV) ONE (15:59)
[2023-03-03] MEDS ORDERED: PHENYLEPHRINE 10 MG/ML 5 ML VIAL ONE (15:59)
[2023-03-03] MEDS ORDERED: SUCCINYLCHOLINE CHLORIDE 200 MG/10 ML VIAL IV ONE (15:59)
[2023-03-03] MEDS ORDERED: PROPOFOL 10 MG/ML 20 ML VIAL IV ONE (15:59)
[2023-03-03] MEDS ORDERED: MIDAZOLAM 2 MG/2 ML VIAL ONE (15:59)
[2023-03-03] MEDS ORDERED: NEOSTIGMINE 1 MG/ML 10 ML VIAL ONE (15:59)
[2023-03-03] MEDS ORDERED: ROCURONIUM 10 MG/ML (5 ML VIAL) IV ONE (15:59)
[2023-03-03] MEDS ORDERED: GLYCOPYRROLATE 0.2 MG/ML 2 ML VIAL ONE (15:59)
[2023-03-03] MEDS ORDERED: fentaNYL (PF) 50 MCG/ML 2 ML AMP ONE (15:59)
[2023-03-03] MEDS ORDERED: IOPAMIDOL-370 100ML BTL MISCELLANE ONE (16:22)
--- NOTE | 2023-03-03 16:54 | P.OP ---
Date of Procedure: 03/03/23 Preoperative Diagnosis: Left ureteral calculus Postoperative Diagnosis: Same Procedure(s) Performed: Cystoscopy, left retrograde pyelogram, left ureteroscopy with Holmium laser lithotripsy and stone basketing Anesthesia: ALIRIO Surgeon: Brian Altamirano Estimated Blood Loss (ml): 0 IV fluids (ml): 300 Pathology: other (Left ureteral calculus fragments, sent for chemical analysis) Condition: stable Disposition: PACU Indications for Procedure: The patient is a 28-year-old white female with no prior history of urolithiasis. She was awakened the night of 02/28/2023 with acute left flank and left-sided abdominal pain. She presented to the ER and was found to have mild left hydronephrosis due to a 4 mm left UVJ calculus. She was admitted for management of intractable symptoms, which have persisted, so she has elected to undergo ureteroscopic removal of the calculus. Operative Findings: Left distal ureteral calculus, fragmented and removed completely. Description of Procedure: The patient was taken to the operating room and placed in the dorsolithotomy position, with legs supported in Alonso stirrups. The external genitalia was prepped and draped sterilely. The 30 lens was used to introduce the 21-Bulgarian Walker cystoscopic sheath through the urethra and into the bladder under direct vision. The bladder was examined in its entirety. The right ureteral orifice was of normal anatomic location and configuration, and clear urine effluxed from it. Mild edema surrounded the left ureteral orifice. No tumors or foreign bodies were seen. Using a 10-Bulgarian cone-tipped catheter, a left retrograde pyelogram was performed. The calculus was seen within the left distal ureter as a filling defect. The ureter proximal to this was dilated. The cone-tipped catheter was advanced to dilate the intramural portion of the ureter. The cystoscope was removed. The Walker semirigid ureteroscope was advanced into the bladder, and the left ureteral orifice was cannulated. The ureteroscope was slowly advanced under direct vision, up to the calculus. The 365 micron Holmium laser probe was passed through the ureteroscope, and lithotripsy was performed using both a dusting and fragmenting mode. Once the calculus was fragmented, all calculus fragments were removed using a 1.9-Bulgarian nitinol 0 tip basket. Final inspection of the ureter showed no residual calculus fragments, and no evidence of ureteral trauma. There was no significant ureteral edema. After removing the ureteroscope, the cystoscope was replaced into the bladder and was used to remove all calculus fragments. These were saved and sent for chemical analysis. The bladder was emptied and the cystoscope removed. The patient tolerated the procedure well and was taken to the recovery room in stable condition. TABITHA POULSBOMarianne Report: Procedure Acuity: Urgent Stone Size and Location: 4-5 mm, left distal ureter Ureteral Dilation: No Ureteral Access Sheath Used: No Stone Sent for Analysis: Yes All Stones/Fragments Were Removed with a Basket: Yes Complications: No Preoperative Antibiotics Given: Yes Stent Placed: No
--- NOTE | 2023-03-03 17:28 | FL ---
EXAMINATION TYPE: FL urography retrograde DATE OF EXAM: 03/03/2023 FLUOROSCOPY Fluoroscopy time of 3.3 seconds was used during urologic intervention with retrograde urography for b ladder stone. 2 image/s document/s the procedure. DAP 0.[address] Altamirano.
[2023-03-03] MEDS ORDERED: HYDROmorphone 1 MG/ML 1 ML SYRINGE IVP ONE (17:30)
[2023-03-03] MEDS ORDERED: KETOROLAC 15 MG/ML 1 ML VIAL IVP ONE (17:48)
[2023-03-03] MEDS: KETOROLAC 15 MG/ML 1 ML VIAL IVP PRN (20:33)
[2023-03-04] MEDS: ONDANSETRON 4 MG/2 ML VIAL IVP PRN ×2 (02:06→14:58)
[2023-03-04] MEDS: HYDROmorphone 1 MG/ML 1 ML SYRINGE IVP PRN ×4 (02:07→10:05)
[2023-03-04] MEDS: KETOROLAC 15 MG/ML 1 ML VIAL IVP PRN (06:24)
[2023-03-04] MEDS ORDERED: ALBUTEROL NEBULIZED 2.5 MG/3 ML INHALATION PRN (06:34)
[2023-03-04] MEDS: SODIUM CHLORIDE 0.9% 1,000 ML IV SCH (06:51)
[2023-03-04 08:36] VITALS: RESP 18
[2023-03-04] MEDS ORDERED: HYDROcodone/APAP 5-325MG 1 EACH TAB PO PRN ×2 (09:08)
--- NOTE | 2023-03-04 09:12 | P.PN ---
Subjective Progress Note Date: 03/04/23 Principal diagnosis: Left ureteral calculus, s/p ureteroscopy with laser lithotripsy The patient underwent ureteroscopic removal of her left distal ureteral calculus yesterday. She continues to report pain and nausea. Objective - Vital Signs Vital signs: Vital Signs Temp 97.6 F 03/04/23 07:12 Pulse 82 03/04/23 07:12 Resp 18 03/04/23 07:12 BP 113/74 03/04/23 07:12 Pulse Ox 93 L 03/04/23 07:12 FiO2 Intake & Output 03/03/23 03/04/23 03/04/23 18:59 06:59 18:59 Intake Total 900 Output Total 0 450 Balance 900 -450 Intake: IV 900 Oral 0 Output: Urine 450 Estimated Blood Loss 0 Other: Voiding Method Toilet Toilet # Voids 2 1 - Constitutional General appearance: Present: average body habitus, mild distress - Gastrointestinal General gastrointestinal: Present: soft. Absent: distended, tenderness - Psychiatric Psychiatric: Present: A&O x's 3 - Labs CBC & Chem 7: 03/03/23 03:38 03/03/23 03:38 Assessment and Plan (1) Left ureteral calculus Current Visit: Yes Status: Acute Code(s): N20.1 - CALCULUS OF URETER SNOMED Code(s): 16117741 (2) Hydronephrosis with renal and ureteral calculous obstruction Current Visit: Yes Status: Acute Code(s): N13.2 - HYDRONEPHROSIS WITH RENAL AND URETERAL CALCULOUS OBSTRUCTION SNOMED Code(s): 353108279 Plan: Continue IV hydration, parenteral analgesics and antibiotics. Discharge home once symptoms can be controlled with oral medications.
[2023-03-04 15:16] VITALS: BP 122/77; PULSE 81; TEMP 98.2
--- NOTE | 2023-03-04 18:42 | P.DS ---
Providers Date of admission: 03/02/23 00:45 Expected date of discharge: 03/04/23 Attending physician: Elvis Menard MD Primary care physician: Stated None - Discharge Diagnosis(es) (1) Left ureteral calculus Current Visit: Yes Status: Acute (2) Hydronephrosis with renal and ureteral calculous obstruction Current Visit: Yes Status: Acute Hospital Course: The patient is a 28-year-old white female with no prior history of urolithiasis. She was awakened the night of 02/28/2023 with acute left flank and left-sided abdominal pain. She presented to the ER and was found to have mild left hydronephrosis due to a 4 mm left UVJ calculus. She was admitted for management of intractable symptoms and underwent ureteroscopic removal of the calculus on 03/03/2023. The following morning, she reported persistent pain and nausea. However, her symptoms improved as the day progressed and she thus desired discharge. She did report mild throat discomfort at that time, likely due to endotracheal tube placement, and was reassured that this would gradually resolve. Procedures: Cystoscopy, left retrograde pyelogram, left ureteroscopy with laser lithotripsy and stone basketing on 03/03/2023. Patient Condition at Discharge: Good Plan - Discharge Summary Discharge Rx Participant: Yes New Discharge Prescriptions: No Action HYDROcodone/APAP 7.5-325MG [[place] 7.5-325] 1 tab PO Q6HR PRN 3 Days #12 tab PRN Reason: Pain Ondansetron Odt [Zofran Odt] 4 mg PO Q8HR PRN #10 tab PRN Reason: Nausea Ketorolac [Toradol] 10 mg PO Q8HR #15 tab Discharge Medication List HYDROcodone/APAP 7.5-325MG [[place] 7.5-325] 1 tab PO Q6HR PRN 3 Days #12 tab 03/01/23 [Rx] Ketorolac [Toradol] 10 mg PO Q8HR #15 tab 03/01/23 [Rx] Ondansetron Odt [Zofran Odt] 4 mg PO Q8HR PRN #10 tab 03/01/23 [Rx] Follow up Appointment(s)/Referral(s): None,Stated [Primary Care Provider] - 1-2 days Brian Altamirano MD [STAFF PHYSICIAN] - 2 Weeks Activity/Diet/Wound Care/Special Instructions: Diet as tolerated. Activity as tolerated. Drink plenty of fluids for 48 hours. Toradol and Zofran were both prescribed by the ER at her initial visit, and she should take these as needed. Patient should notify Dr. Altamirano if she requires additional medication. Discharge Disposition: HOME SELF-CARE
== END 2023-03-04 20:07 | disposition home or self-care (01) | DRG 694 ==
LOC: EC 21:32 → 4SSUR 03-02 00:44 → OBSVTOIN 03-02 00:45 → 4SSUR 03-02 01:01
PROVIDERS: ADMIT Urology; ATTEND Urology
PROC: 0TC78ZZ Extirpation of Matter from Left Ureter, Via Natural or Artificial Opening Endoscopic (ICD-10-PCS; principal; 2023-03-03 07:30)
PROC: BT1F1ZZ Fluoroscopy of Left Kidney, Ureter and Bladder using Low Osmolar Contrast (ICD-10-PCS; principal; 2023-03-03 07:30)
PROC: 0TF78ZZ Fragmentation in Left Ureter, Via Natural or Artificial Opening Endoscopic (ICD-10-PCS; principal; 2023-03-03 07:30)
DX: N13.2 Hydronephrosis with renal and ureteral calculous obstruction (principal); K21.9 Gastro-esophageal reflux disease without esophagitis; J45.909 Unspecified asthma, uncomplicated; F31.9 Bipolar disorder, unspecified; Z82.5 Family history of asthma and other chronic lower respiratory diseases; Z28.82 Immunization not carried out because of caregiver refusal; Z91.010 Allergy to peanuts
CPT/HCPCS: 36415; 74018; 74420; 80048; 80053; 81025; 82365; 85025; 96361; 96374; 96375; 99285